=== PATIENT | male | born 1995 | race Caucasian/White ===

== ENCOUNTER 2019-08-10 21:38 | Emergency (ER) | payer OTHER ==
[~2019-08-10] VITALS: Ht 188 cm; Wt 145.2 kg
[~2019-08-10 21:38] MED LIST: ALEVE220 MG PO; BENADRYL25 MG PO; CYCLOBENZAPRINE10 MG PO; FIORINAL 50-321 EACH PO; GUAIATUSSIN AC10 ML PO; IBUPROFEN800 MG PO; NYQUIL D COLD295 ML PO; PENICILLIN V P500 MG PO; POLYSPORIN OI28.3 GM TOP; ROBITUSSIN COL1 EACH PO; ZITHROMAX250 MG PO
[2019-08-10] MEDS ORDERED: VENTOLIN HFA18 GM INH (21:58)
[2019-08-10] MEDS ORDERED: PREDNISONE20 MG PO (22:26)
== END 2019-08-10 22:34 | disposition home or self-care (01) ==
LOC: ED 21:38
DX: J45.901 Unspecified asthma with (acute) exacerbation (principal); J20.9 Acute bronchitis, unspecified; Z79.899 Other long term (current) drug therapy
CPT/HCPCS: 99284; J7512

== ENCOUNTER 2019-08-12 16:03 | Emergency (ER) | payer OTHER ==
[~2019-08-12] VITALS: Ht 188 cm; Wt 145.2 kg
[~2019-08-12 16:03] MED LIST changes: +PREDNISONE20 MG PO; +VENTOLIN HFA18 GM INH
--- OUTSIDE RECORDS SUMMARY | 2019-08-12 16:06 | XMS ---
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 E.Bharti VISIT COUNT (12 MO.) 1 [facility] [address] TOTAL 3 NOTE: Visits indicate total known visits. ED/UCC VISIT TRACKING (12 MO.) 08/12/2019 16:03 [facility]erta TYPE: Emergency COMPLAINT: - COUGH, CONGESTION 08/10/2019 21:39 [facility] [place] TYPE: Emergency COMPLAINT: - UPPER RESPITORY ISSUE [facility]12/2018 14:37 [facility] DIAGNOSES: - Cutaneous abscess, unspecified - Abscess - rash INPATIENT VISIT TRACKING (12 MO.) No inpatient visits to display in this time frame [email or web address]
== END 2019-08-12 16:22 | disposition home or self-care (01) ==
LOC: ED 16:03
DX: R05 Cough (principal); F17.290 Nicotine dependence, other tobacco product, uncomplicated; R09.81 Nasal congestion

== ENCOUNTER 2019-11-01 17:22 | Emergency (ER) | payer OTHER ==
[~2019-11-01] VITALS: Ht 188 cm; Wt 154.2 kg
--- OUTSIDE RECORDS SUMMARY | ~2019-11-01 | XMS | Encounter Summary ---
Demographics + + + | Address | [address] | | | [place] [address] | + + + | Home Phone | | + + + | Preferred Language | Unknown | + + + | Marital Status | Unknown | + + + | Zoroastrian Affiliation | Unknown | + + + | Race | Unknown | + + + | Ethnic Group | Unknown | + + + Author + + + | Author | [facility] | | | and [place] | + + + | Organization | [facility] | | | and [place] | + + + | Address | Unknown | + + + | Phone | Unavailable | + + + Support + + +---------+ + | Name | Relationship | Address | Phone | + + +---------+ + | Galo Walters | ECON | Unknown | + | + + +---------+ + | Georgia Soto | ECON | Unknown | | + + +---------+ + Care Team Providers + +------+ + | Care Supervisor Sunglasses Name | Role | Phone | + +------+ + | No, Physician | PCP | Unavailable | + +------+ + Reason for Visit + + + | Reason | Comments | + + + | Symptom Management | COVID | + + + Encounter Details +--------+ + + + + | Date | Type | Department | Care Team | Description | +--------+ + + + + | 08/16/ | Telephone | [facility] | Drew Arroyo | Symptom Management | | 2020 | | CARE [address] | MD Marleen [address] | (COVID) | | | | [place] | [place] | | | | | [phone] | [address] | | | | | [phone] | | | +--------+ + + + + Social [...] on file | | + + + + + + + | Job Start Date | Occupation | Industry | + + + + | Not on file | Not on file | Not on file | + + + + + + + + | Travel History | Travel Start | Travel End | + + + + + + | No recent travel history available. | + + documented as of this encounter Plan of Treatment Not on filedocumented as of this encounter Visit Diagnoses Not on filedocumented in this encounter"
--- OUTSIDE RECORDS SUMMARY | ~2019-11-01 | XMS | Encounter Summary ---
Demographics + + + | Address | [address] | | | [place] [address] | + + + | Home Phone | | + + + | Preferred Language | Unknown | + + + | Marital Status | Unknown | + + + | Alevism Affiliation | Unknown | + + + | Race | Unknown | + + + | Ethnic Group | Unknown | + + + Author + + + | Author | [facility] | | | and [place] | + + + | Organization | [facility] | | | and [place] [...] Team Providers + +------+ + | Care Fishing Tackle Repairer Name | Role | Phone | + +------+ + | No, Physician | PCP | Unavailable | + +------+ + Reason for Visit + + + | Reason | Comments | + + + | New Patient | | + + + | Back Pain | | + + + Evaluate & Treat (Routine) [...] | pain with | [address] | [place], [place] | | | | | right-sided | [place], [place] | [address] Phone: | | | | | sciatica | [address] | [phone] | | | | | | Phone: | Fax: | | | | | | [phone] | [phone] | | | | | | Fax: | | | | | | | [phone] | | +--------+ + + + + + Encounter Details +--------+---------+ + + + | Date | Type | Department | Care Team | Description | +--------+---------+ + + + | 12/14/ | Office | [facility] [place] | Maira Workman | Spondylolisthesis of | | 2017 | Visit | NEUROSURGERY [address] | [place] [address] | lumbar region | | | | [address] | [address] [address] | (Primary Dx); Lumbar | | | | [place], [place] | [address] | radiculopathy; | | | | [address] | [id number] | Lumbar disc | | | | [phone] | | herniation | +--------+---------+ + + + Social History [...] + + + | Blood Pressure | 120/79 | 12/14/2017 2:15 PM | | | | | PDT | | + + + + + | Pulse | 81 | 12/14/2017 2:15 PM | | | | | PDT | | + + + + + | Temperature | - | - | | + + + + + | Respiratory Rate | 18 | 12/14/2017 2:15 PM | | | | | PDT | | + + + + + | Oxygen Saturation | - | - | | + + + + + | Inhaled Oxygen | - | - | | | Concentration | | | | + + + + + | Weight | 148.5 kg (327 lb 5 | 12/14/2017 2:15 PM | | | | oz) | PDT | | + + + + + | Height | 185.4 cm (6' 1") | 12/14/2017 2:15 PM | | | | | PDT | | + + + + + | Body Mass Index | 43.18 | 12/14/2017 2:15 PM | | | | | PDT | | + + + + + documented in this encounter Patient Instructions Patient Instructions Maira Workman PA-C - 12/14/2017 2:00 PM PDT1. I recommended decreasing BMI to 35 and smoking cessation to improve health and in hopes of avoiding surge ry 2. Please contact our office if her symptoms progress in you would like to discuss surgery documented in this encounter Progress Notes Maira Workman PA-C - 12/14/2017 2:00 PM PDTFormatting of this note might be diffe rent from the original. Joaquin Workman PA-C [address] [place] [address] PHONE: FAX: NEUROSURGERY HISTORY AND PHYSICAL EXAMINATION CHIEF COMPLAINT: Chief Complaint Patient presents with New Patient Back Pain HISTORY OF PRESENT ILLNESS: The patient is a 22 y.o. male with the complaint of back and b ilateral leg pain, leg numbness and foot numbness symptoms that began 2 months ago after he lifted a box of tools. The tools weighed about 50-60 lbs and he bent over to pick them up. T he patient describes pain near/around his tailbone. If he stands too long the pain will go d own the back of his right leg ending at the posterior knee and bothers him more so than the left. The first couple weeks he was unable to turn over in bed. He is feeling improvment as time goes on and reports a Medrol Dosepak given by the ER significantly reduced his symptoms . The symptoms have been unchanged. He rates the pain as mild and rated a 4/10. The symptom s are daily. He describes the pain as dull and aching. The patient describes leg symptoms that occur on primarily on the right. The leg symptoms account for 50% of his symptoms. The leg symptoms are intermittent, and the symptoms travel from the back to the posterolateral leg. The patient also describes numbness of the legs a nd numbness of the feet. He is not able to walk as far as he use to. After about 30 minutes he has to stop and rest. The patient does not report any change in bowel or bladder function recently. His symptoms improve with changing position, standing, sitting and walking. His symptoms worsen with standing, bending and twisting. He has tried Physical Therapy, Opioids, NSAIDS and Muscle relaxer's. Tried marijuana the fi rst month or so, and that helped with his pain. The patient is currently taking muscle relax er's. These measures are still helping. PAST MEDICAL HISTORY: History reviewed. No pertinent past medical history. PAST SURGICAL HISTORY: History reviewed. No pertinent surgical history. CURRENT MEDICATIONS: Current Outpatient Prescriptions Medication Sig Dispense Refill cetirizine (ZYRTEC) 10 mg tablet Take 10 mg by mouth Daily. cyclobenzaprine (FLEXERIL) 10 mg tablet Take 10 mg by mouth 3 times daily as needed for Muscle spasms. diphenhydrAMINE (BENADRYL) 25 mg tablet Take 50 mg by mouth every 6 hours as needed for Itching. No current facility-administered medications for this visit. ALLERGIES: No Known Allergies SOCIAL HISTORY: The patient reports that he has been smoking E-Cigarettes. He has never used smokeless to bacco. He reports that he does not drink alcohol or use drugs. FAMILY HISTORY: History reviewed. No pertinent family history. REVIEW OF SYSTEMS: GENERALLY: No fever, no night sweats, no anemia, no fatigue, no recent profound weight ch anges. EYES: No eye problems, no use of corrective lenses, no eye injury, no double vision, no bl indness. EARS, NOSE, AND THROAT: No changes in taste or smell, no hearing difficulty, no ringing in the ears, no ear drainage, no dizziness, no voice changes, no difficulty swallowing, no sig nificant snoring, no sleep apnea, no sinus problems, no major dental work. NEUROLOGICALLY: Please see the review of systems discussed above in the history of present illness. In addition, the patient has lower back pain, some pins and needles feeling in hi s legs and feet. Will have pain radiate down the back of his legs. PSYCHIATRIC: No depression, no sleep disorders, no anxiety, no bipolar disorder, no psycho tic episodes. CARDIOVASCULAR: No heart attacks, no heart murmur, no heart fluttering, no chest pain, no ankle swelling. LUNG DISEASE: No shortness of breath, no cough, no tuberculosis, no bloody cough, no asth ma, no emphysema/COPD. GASTROINTESTINAL: No bowel disease, no nausea or vomiting, no rectal bleeding, no constipa tion, no stool incontinence, no liver disease, no gallbladder disease, no abdominal pain, no ulcers. KIDNEY DISEASE: No urinary frequency, no painful or difficult urination, no incontinence, no impotence. ENDOCRINE: No diabetes, no thyroid disease, no osteopenia or osteoporosis, no breast drain age. SKIN: No breast lumps, no skin changes, no rashes, no itches. HEMATOLOGIC/LYMPHATIC: No enlarged lymph nodes, no easy or unusual bleeding, no personal h istory of cancer. RHEUMATOLOGIC: No joint arthritis, no rheumatoid arthritis. PHYSICAL EXAMINATION: Blood pressure 120/79, pulse 81, resp. rate 18, height 1.854 m (6' 1"), weight (!) 148.5 kg (327 lb 5 oz). Body mass index is 43.18 kg/m. GENERAL: Campbell Li is in no acute distress with unlabored respirations. The pa tient does not appear uncomfortable throughout the exam today. HEENT: Head: Normocephalic/atraumatic with no areas of recent trauma. Eyes: Normal sclerae without icterus. Ears: No drainage or tenderness. Nasopharynx: Clear without drainage. Oropharynx: Clear without erythema. NECK (ANTERIOR): Supple and without palpable masses. CHEST: Clear to ausculation without crackles or wheeze. HEART: Regular rate and rhythm without murmurs. ABDOMEN: Soft, non-tender, non-distended, and without palpable masses. The patient is obese . SPINE: There is no tenderness of there cervical or thoracic spine. The lumbar spine shows there is tenderness in the midline of the L4, L5, S1 levels. To pal pation, there is no significant myofascial tenderness. There is no significant pain to provacative testing of the SI joint. There is no major deformity noted. EXTREMITIES: No cyanosis, clubbing, or edema. Distal pulses are palpable. NEUROLOGICAL EXAM: MENTAL STATUS: The patient is awake, alert, and oriented. He follows simple and complex commands. His speech is fluent, he comprehends speech well, and he repeats well. He has no apparent deficits with short or supervisor intermediates memory. CRANIAL NERVES: II: Acuity is intact. Hernandez are full to confrontation. III, IV, : The pupils are reactive. Extraocular movements are intact. No ptosis is note d. V: Facial sensation is intact and symmetric. VII: Facial movements are symmetric. VIII: Hearing is intact bilaterally. IX, X: The uvula and palate move appropriately. XI: Shrug is equal bilaterally. XII: Tongue protrusion is midline. MOTOR EXAM: (5 IS NORMAL) * Indicates pain limited MUSCLE/ MOVEMENT: RIGHT LEFT Hip Flexion 5 5 Hip Extension 5 5 Knee Flexion 5 5 Knee Extension 5 5 Dorsiflexion 5 5 Extensor Hallicus Longus 5 5 Plantarflexion 5 5 SENSORY EXAM: Sensory exam shows no diminished sensation to light touch or pain throughout the upper and lower extremities. REFLEXES: (2 OR 2+ IS NORMAL) REFLEX: RIGHT LEFT PATELLAR 2 2 ACHILLES 2 2 WARD'S ABSENT ABSENT PLANTAR DOWNGOING DOWNGOING GAIT: Gait is steady. patient is able to demonstrate tiptoe and heel walk PERIPHERAL NERVE/MISC: Straight leg raise is negative bilaterally. Avi's test of the hips is negative bilaterally. TEST AND RADIOGRAPHIC REVIEW: The patient's imaging was reviewed in detail with the patient today during the visit. The MRI from 2018 shows L4-5 severe central disc protrusion causing severe central spinal stenos is and complete effacement of the CSF collar and mild mass effect at this level. This is ca using mild bilateral neural foraminal narrowing. Lumbar x-rays from 12/14/17 shows spondylolisthesis at L4-5 on flexion extension views. Sp ondylolisthesis is unstable and lumbar extension and normalizes in lumbar flexion. ASSESSMENT: NEUROSURGICAL DIAGNOSES: Encounter Diagnoses Name Primary? Spondylolisthesis of lumbar region Yes Lumbar radiculopathy Lumbar disc herniation GENERAL DIAGNOSES: History reviewed. No pertinent past medical history. PLAN: Campbell Li presented today, and it was a pleasure seeing this patient and assess ing his neurologic problems. The patient has L4-5 spondylolisthesis with very large central disc protrusion causing jesse re canal stenosis. The patient has stable symptoms. I had a lengthy discussion with the patient about his options for care including surgical a nd non-surgical options. In discussing the surgical options, we discussed in detail the patient's options for a mini anuja invasive discectomy at L4-5 versus fusion at L4-5 due to spondylolisthesis. We answer ed a number of questions about surgery and the different available techniques. The patient understands that in most instances the recovery from surgery can be lengthy and sometimes difficult. The patient would like to continue with conservative care including 100 pound weight loss a nd smoking cessation which would optimize conservative outcome or surgical options. The patient would like to continue conservative care and return to discuss surgery or addit ional treatment options if the symptoms worsen. Patient is willing to see Dr. Vigil or Dr. Dr king in the event that his symptoms progress and surgery is being considered. ELECTRONICALLY SIGNED BY: Joaquin Workman PA-C, 12/14/2017 15:12 documented in this encounter Plan of Treatment Not on filedocumented as of this encounter Visit Diagnoses + + | Diagnosis | + + | Spondylolisthesis of lumbar region - Primary Acquired spondylolisthesis | + + | Lumbar radiculopathy Thoracic or lumbosacral neuritis or radiculitis, unspecified | + + | Lumbar disc herniation Displacement of lumbar intervertebral disc without myelopathy | + + documented in this encounter
--- OUTSIDE RECORDS SUMMARY | ~2019-11-01 | XMS | Encounter Summary ---
Demographics + + + | Address | [address] | | | [place] [address] | + + + | Home Phone | | + + + | Preferred Language | Unknown | + + + | Marital Status | Unknown | + + + | Congregation Affiliation | Unknown | + + + | Race | Unknown | + + + | Ethnic Group | Unknown | + + + Author + + + | Author | [facility] | | | and [place] | + + + | Organization | [facility] | | | and [place] | [...] Team Providers + +------+ + | Care Surgical Garment Fitter Name | Role | Phone | + +------+ + | No, Physician | PCP | Unavailable | + +------+ + Reason for Visit +---------+ + | Reason | Comments | +---------+ + | Abscess | | +---------+ + Encounter Details +--------+ + + + + | Date | Type | Department | Care Team | Description | +--------+ + + + + | // | Emergency | [facility] | Paul Art MD | Abscess (Primary Dx) | | 2019 | | [facility] | [address] | | | | | CENTER [address] | [place] | | | | | [place], [place] | [address] | | | | | [address] | | | | | | [phone] | | | +--------+ + + + [...] + + + | Blood Pressure | 143/85 | 08/12/2018 4:45 PM | | | | | PST | | + + + + + | Pulse | 71 | 08/12/2018 4:56 PM | | | | | PST | | + + + + + | Temperature | 37.4 C (99.3 F) | 08/12/2018 2:59 PM | | | | | PST | | + + + + + | Respiratory Rate | 16 | 08/12/2018 2:59 PM | | | | | PST | | + + + + + | Oxygen Saturation | 97% | 08/12/2018 4:56 PM | | | | | PST | | + + + + + | Inhaled Oxygen | - | - | | | Concentration | | | | + + + + + | Weight | 147.4 kg (325 lb) | 08/12/2018 2:59 PM | | | | | PST | | + + + + + | Height | 185.4 cm (6' 1") | 08/12/2018 2:59 PM | | | | | PST | | + + + + + | Body Mass Index | 42.88 | 08/12/2018 2:59 PM | | | | | PST | | + + + + + documented in this encounter Discharge Instructions Instructions Paul Art MD - 08/12/2018Please fill prescription if you start having any redness around the incision. Return for any fevers, chills, nausea and vomiting. AttachmentsThe following attachments cannot be sent through Care Everywhere.Abscess, Incisi on And Drainage (Grenadian)documented in this encounter Medications at Time of [...] +---------+ + + | cyclobenzaprine | Take 10 mg by mouth | | 0 | | | | (FLEXERIL) 10 mg | 3 times daily as | | | | | | tablet | needed for Muscle | | | | | | | spasms. | | | | | + + + +---------+ + + | | Take 1 tablet by | 14 | 0 | 08/13/19 | | | sulfamethoxazole-tri | mouth 2 times daily | tablet | | 19 | 9 | | methoprim (BACTRIM | for 7 days. | | | | | | DS) 800-160 mg per | | | | | | | tablet [...] | + +--------+ + + + | INCISION AND | Routin | 08/15/2018 | | Results for this | | DRAINAGE | e | 3:26 PM | | procedure are in the | | | | PST | | results section. | + +--------+ + + + documented in this encounter Results INCISION AND DRAINAGE (08/15/2018 3:26 PM PST) + + + | Narrative | Performed At | + + + | Paul Art MD 08/15/2018 15:27 Incision/Drainage Date/Time: | | | 08/15/2018 15:26 Performed by: PAUL ART Authorized by: KAELYN | | | PAUL Consent: Consent obtained: Verbal Consent given | | | by: Patient Risks discussed: Bleeding, incomplete drainage, | | | pain, infection and damage to other organs Alternatives | | | discussed: No treatment Location: Type: Abscess | | | Location: Trunk Trunk location: Abdomen Anesthesia: | | | Anesthesia method: Local infiltration Local anesthetic: | | | Lidocaine 1% WITH epi Procedure type: Complexity: Simple | | | Procedure details: Needle aspiration: no Incision types: | | | Single straight Incision depth: Subcutaneous Scalpel | | | blade: 11 Wound management: Probed and deloculated and | | | irrigated with saline Drainage: Serosanguinous Drainage | | | amount: Scant Wound treatment: Wound left open Packing | | | materials: None Post-procedure details: Patient tolerance of | | | procedure: Tolerated well, no immediate complications | | + + + documented in this encounter Visit Diagnoses + + | Diagnosis | + + | Abscess - Primary Cellulitis and abscess of unspecified site | + + documented in this encounter Administered Medications + +--------+ + +------+------+ | Medication Order | MAR | Action | Dose | Rate | Site | | | Action | Date | | | | + +--------+ + +------+------+ | bacitracin topical ointment | Given | 08/13/19 | 1 | | | | Topical, ONCE, 08/12/18 at | | 19 4:53 | Applicat | | | | 1655, For 1 dose | | PM PST | ion | | | + +--------+ + +------+------+ +---+---+ | | | +---+---+ documented in this encounter
--- OUTSIDE RECORDS SUMMARY | ~2019-11-01 | XMS | Encounter Summary ---
Demographics + + + | Address | [address] | | | [place] [address] | + + + | Home Phone | | + + + | Preferred Language | Unknown | + + + | Marital Status | Unknown | + + + | Congregational Affiliation | Unknown | + + + | Race | Unknown | + + + | Ethnic Group | Unknown | + + + Author + + + | Author | [facility] | | | and [place] | + + + | Organization | [facility] | | | and [place] | [...] Team Providers + +------+ + | Care Corporate Learning Consultant Name | Role | Phone | + [...] | improving (Primary | | | | [phone] | [phone] | Dx); Mild | | | | [phone] | | intermittent asthma | | | [...] fluids and get plenty of rest. Use hdrg-vat-jmeipsj Tylenol or Advil as needed for fever, [...] d/or Cepastat throat spray as needed. Take mupr-qwe-vjgoflc Mucinex or equivalent product as needed for [...] when you feel good. Date Last Reviewed: 05/12/201619992248-5049 [employer] [address] [place] [address], [place] [address]. All righ ts reserved. This information is [...] 6 day s ago. Seen at in [place] 6 days ago and given prednisone with [...] anterior pleuritic chest burning/pain. [facility] and has hx of asthma on albuterol inhaler. Never hospitalized for the same. Has been taking prednisone, Zpak and albuterol with improvement in symptoms. No travel history outside the area in the last month. No known exposure to others ill after tr bowen to [facility] areas of concern. He presents with his [...] view chest x-ray and the report from [facility] in [place] performed 6 days ago. The urgent care [...] fluids and get plenty of rest. Use flhw-rpa-sasjobs Tylenol or Advil as needed for fever, [...] d/or Cepastat throat spray as needed. Take yetw-cfp-fjfzzkk Mucinex or equivalent product as needed for thick mucous. Use Robitussin-DM as needed for cough. Return or follow-up with your primary doctor if not better in 1 week, sooner if experiencin g difficulty swallowing liquids, progressive productive cough, associated chest pain, shortn ess of breath, progressive wheezing, fever, vomiting or progessive sinus pressure/headache. Drew Aroryo MD documented in th is encounter Plan of Treatment Not on filedocumented as of this encounter Visit Diagnoses + + | Diagnosis | + + | Atypical pneumonia, history of, improving - Primary Pneumonia, organism unspecified | + + | Mild intermittent asthma without complication Unspecified asthma | + + documented in this encounter
--- OUTSIDE RECORDS SUMMARY | ~2019-11-01 | XMS | Encounter Summary ---
Demographics + + + | Address | [address] | | | [place] [address] | + + + | Home Phone | | + + + | Preferred Language | Unknown | + + + | Marital Status | Unknown | + + + | Gnosticism Affiliation | Unknown | + + + | Race | Unknown | + + + | Ethnic Group | Unknown | + + + Author + + + | Author | [facility] | | | and [place] | + + + | Organization | [facility] | | | and [place] [...] Team Providers + +------+ + | Care Wire Preparation Worker Name | Role | Phone | + [...] | | | | CENTER [address] | [place] | | | | | [place], [place] | [address] | | | | | [address] | | | | | | [phone] | | | +--------+ + + + [...] through Care Everywhere.Abscess, Incisi on And Drainage (Lithuanian)documented in this encounter Medications at Time of [...]
--- OUTSIDE RECORDS SUMMARY | ~2019-11-01 | XMS | Encounter Summary ---
Demographics + + + | Address | [address] | | | [place] [address] | + + + | Home Phone | | + + + | Preferred Language | Unknown | + + + | Marital Status | Unknown | + + + | Mandaeism Affiliation | Unknown | + + + | Race | Unknown | + + + | Ethnic Group | Unknown | + + + Author + + + | Author | [facility] | | | and [place] | + + + | Organization | [facility] | | | and [...] Team Providers + +------+ + | Care Commercial Producer Name | Role | Phone | + [...] | +--------+ + + + + | 10/09/ | Emergency | [facility] | Juan Francisco Porras | Lumbar strain, | | 2018 | | [facility] | Kwadwo Jones MD | initial encounter | | | | CENTER [address] | [address] | (Primary Dx) | | | | [place], [place] | [place], [place] | | | | | [address] | [address] | | | | | [phone] | | | +--------+ + + + [...] + + + | Blood Pressure | 125/70 | 10/09/2017 3:11 PM | | | | | PDT | | + + + + + | Pulse | 87 | 10/09/2017 3:11 PM | | | | | PDT | | + + + + + | Temperature | 36.9 C (98.5 F) | 10/09/2017 1:09 PM | | | | | PDT | | + + + + + | Respiratory Rate | 18 | 10/09/2017 3:11 PM | | | | | PDT | | + + + + + | Oxygen Saturation | 96% | 10/09/2017 3:11 PM | | | | | PDT | | + + + + + | Inhaled Oxygen | - | - | | | Concentration | | | | + + + + + | Weight | 129.3 kg (285 lb) | 10/09/2017 1:09 PM | | | | | PDT | | + + + + + | Height | 185.4 cm (6' 1") | 10/09/2017 1:09 PM | | | | | PDT | | + + + + + | Body Mass Index | 37.6 | 10/09/2017 1:09 PM | | | | | PDT | | + + + + + documented in this encounter Discharge Instructions Instructions Juan Francisco Porras MD - 10/09/2017Do stretching and icing to your lo wer back. Continue walking. Please follow-up with your primary care physician. Please fol low-up with the primary care physician for further reassessment and possible referral to phy sical therapy. AttachmentsThe following attachments cannot be sent through Care Everywhere.Lumbosacral Str ain, Understanding (Sami)documented in this encounter Medications at Time of [...] cyclobenzaprine | Take 1 tablet by | 21 | 0 | 10/10/19 | | | (FLEXERIL) 10 mg | mouth 3 times daily | tablet | | 18 | 8 | | tablet | as needed for Muscle | | | | [...] tablet by | 30 | 0 | 10/10/19 | | | (ADVIL,MOTRIN) 800 | mouth [...] + | Diagnosis | + + | Lumbar strain, initial encounter - Primary | + + documented in this encounter Administered Medications + +--------+ +-------+------+------+ | Medication Order | MAR | Action | Dose | Rate | Site | | | Action | Date | | | | + +--------+ +-------+------+------+ | cyclobenzaprine (FLEXERIL) | Given | 10/10/19 | 10 mg | | | | tablet 10 mg 10 mg, Oral, ONCE, | | 18 2:44 | | | | | 10/09/17 at 1435, For 1 dose | | PM PDT | | | | + +--------+ +-------+------+------+ +---+---+ | | | +---+---+ + +-------+ +-------+---+ + | ketorolac (TORADOL) injection | Given | 10/10/19 | 60 mg | | Ventrogl | | 60 mg 60 mg, Intramuscular, | | 18 2:44 | | | uteal-Ri | | ONCE, Mon10/09/17 at 1435, For 1 | | PM PDT | | | ght | | dose | | | | | | + +-------+ +-------+---+ + +---+---+ | | | +---+---+ + +-------+ +------+---+ + | morphine injection 8 mg 8 mg, | Given | 10/10/19 | 8 mg | | Ventrogl | | Intramuscular, ONCE, Mon10/09/17 | | 18 2:45 | | | uteal-Le | | at 1435, For 1 dose | | PM PDT | | | ft | + +-------+ +------+---+ + +---+---+ | | | +---+---+ documented in this encounter
--- OUTSIDE RECORDS SUMMARY | ~2019-11-01 | XMS | Encounter Summary ---
Demographics + + + | Address | [address] | | | [place] [address] | + + + | Home Phone | | + + + | Preferred Language | Unknown | + + + | Marital Status | Unknown | + + + | Jain Affiliation | Unknown | + + + | Race | Unknown | + + + | Ethnic Group | Unknown | + + + Author + + + | Author | [facility] | | | and [place] | + + + | Organization | [facility] | | | and [place] [...] Team Providers + +------+ + | Care Representative Phlebotomy Services Name | Role | Phone | + +------+ + | No Physician | PCP | Unavailable | + +------+ + Encounter Details +--------+ + + + + | Date | Type | Department | Care Team | Description | +--------+ + + + + | 11/02/ | Orders Only | [facility] [place] | Fletcher Ellis, | Back pain, | | 2018 | | NEUROSURGERY [address] | DO [address] | unspecified back | | | | [address] | [address] [place], [place] | location, | | | | [place], [place] | [address] | unspecified back | | | | [address] | | pain laterality, | | | | [phone] | | unspecified | | | | | | chronicity (Primary | | | | | | Dx) | +--------+ + + + + Social [...] Not on filedocumented as of this encounter Results XR Lumbar Spine 4 [...] Procedure Note | + + | Steffen, Faizan Results In - 12/14/2017 2:25 PM PDT [...] back pain laterality, unspecified | | chronicity - Primary | + + documented in this encounter"
--- OUTSIDE RECORDS SUMMARY | ~2019-11-01 | XMS | Encounter Summary ---
Demographics + + + | Address | [address] | | | [place] [address] | + + + | Home Phone | | + + + | Preferred Language | Unknown | + + + | Marital Status | Unknown | + + + | Cheondoism Affiliation | Unknown | + + + | Race | Unknown | + + + | Ethnic Group | Unknown | + + + Author + + + | Author | [facility] | | | and [place] | + + + | Organization | [facility] | | | and [place] [...] Team Providers + +------+ + | Care Legal Support Assistant Name | Role | Phone | + +------+ + | No, Physician | PCP | Unavailable | + +------+ + Reason for Visit +--------+ + | Reason | Comments | +--------+ + | Fall | | +--------+ + Encounter Details +--------+ + + + + | Date | Type | Department | Care Team | Description | +--------+ + + + + | 02/01/ | Emergency | [facility] | Zev Haji | Contusion of right | | 2017 | | [facility] | MD Akin [address] | leg, initial | | | | CENTER [address] | [address] [place] | encounter (Primary | | | | [place], [place] | [place] [address] | Dx); Other sprain of | | | | [address] | [phone] | right thumb, | | | | [phone] | | initial encounter | +--------+ + + + + Social History + +-------+ +--------+------+ | Tobacco Use | Types | Packs/Day | Years | Date | | | | | Used | | + +-------+ +--------+------+ | Passive Smoke | | | | | | Exposure - Never | | | | | | Smoker | | | | | + +-------+ +--------+------+ + + +---------+ + | Alcohol Use [...] + + + | Blood Pressure | 138/78 | 02/01/2017 5:11 PM | | | | | PDT | | + + + + + | Pulse | 93 | 02/01/2017 5:11 PM | | | | | PDT | | + + + + + | Temperature | - | - | | + + + + + | Respiratory Rate | 16 | 02/01/2017 5:11 PM | | | | | PDT | | + + + + + | Oxygen Saturation | 97% | 02/01/2017 5:11 PM | | | | | PDT | | + + + + + | Inhaled Oxygen | - | - | | | Concentration | | | | + + + + + | Weight | 133.8 kg (295 lb) | 02/01/2017 5:11 PM | | | | | PDT | | + + + + + | Height | 185.4 cm (6' 1") | 02/01/2017 5:11 PM | | | | | PDT | | + + + + + | Body Mass Index | 38.92 | 02/01/2017 5:11 PM | | | | | PDT | | + + + + + documented in this encounter Discharge Instructions Instructions Zev Haji MD - 02/01/2017Take ibuprofen 600 mg every 6-8 hours if needed for pain You may also take Tylenol thousand milligrams every 6 hours in addition to ibuprofen if nee ded for pain not relieved by ibuprofen Expect a couple of weeks to heal documented in this encounter Medications at Time of [...] + +--------+ + + + | XR FINGER RIGHT 2 + | Routin | 02/01/2017 | | Results for this | | VW | e | 6:00 PM | | procedure are in the | | | | PDT | | results section. | + +--------+ + + + | XR TIBIA FIBULA | STAT | 02/01/2017 | | Results for this | | RIGHT 2 VW | | 5:57 PM | | procedure are in the | | | | PDT | | results section. | + +--------+ + + + documented in this encounter Results XR Finger Right 2 + Vw (02/01/2017 6:00 PM PDT) + + | Specimen | + + | | + + + + + | Narrative | Performed At | + + + | EXAM:XR FINGER RIGHT 2 + VW CLINICAL HISTORY: Pain in right | [facility] | | thumb COMPARISON: None. FINDINGS: 3 views of the right thumb. | | | Normal mineralization. No acute fracture. No current | | | dislocation. No bone erosion or destruction. The soft tissues are | | | unremarkable. There are no radiopaque foreign bodies. | | | IMPRESSION - No acute fracture or current dislocation. | | | Dictated and Signed by: Maxim Israel MD Electronically signed: | | | 02/01/2017 6:02 PM | | + + + + + | Procedure Note | + + | Steffen, Faizan Results In - 02/01/2017 6:05 PM PDT EXAM:XR FINGER RIGHT 2 + VW | | | | CLINICAL HISTORY: Pain in right thumb | | | | COMPARISON: None. | | | | FINDINGS: 3 views of the right thumb. | | | | Normal mineralization. No acute fracture. No current dislocation. No bone | | erosion or destruction. The soft tissues are unremarkable. There are no | | radiopaque foreign bodies. | | | | IMPRESSION - | | | | No acute fracture or current dislocation. | | | | Dictated and Signed by: Maxim Israel MD | | Electronically signed: 02/01/2017 6:02 PM | + + + +---------+ + + | Performing | Address | City/State/Zipcode | Phone Number | | Organization | | | | + +---------+ + + | [facility] | | | | + +---------+ + + XR Tibia Fibula Right 2 Vw (02/01/2017 5:57 PM PDT) + + | Specimen | + + | | + + + + + | Narrative | Performed At | + + + | EXAM:XR TIBIA FIBULA RIGHT 2 VW CLINICAL HISTORY: FALL | [facility] | | COMPARISON: None. FINDINGS: 2 views of the right tibia and fibula. | | | One frontal view of the right knee. Normal mineralization. | | | No acute fracture. No current dislocation. No bone erosion or | | | destruction. The soft tissues are unremarkable. There are no | | | radiopaque foreign bodies. IMPRESSION - No acute osseous | | | abnormality. Dictated and Signed by: Maxim Israel MD | | | Electronically signed: 02/01/2017 6:00 PM | | + + + + + | Procedure Note | + + | Steffen, Rad Results In - 02/01/2017 6:03 PM PDT EXAM:XR TIBIA FIBULA RIGHT 2 VW | | | | CLINICAL HISTORY: FALL | | | | COMPARISON: None. | | | | FINDINGS: 2 views of the right tibia and fibula. One frontal view of the right | | knee. | | | | Normal mineralization. No acute fracture. No current dislocation. No bone | | erosion or destruction. The soft tissues are unremarkable. There are no | | radiopaque foreign bodies. | | | | IMPRESSION - | | | | No acute osseous abnormality. | | | | Dictated and Signed by: Maxim Israel MD | | Electronically signed: 02/01/2017 6:00 PM | + + + +---------+ + + | Performing | Address | City/State/Zipcode | Phone Number | | Organization | | | | + +---------+ + + | [facility] | | | | + +---------+ + + documented in this encounter Visit Diagnoses + + | Diagnosis | + + | Contusion of right leg, initial encounter - Primary | + + | Other sprain of right thumb, initial encounter | + + documented in this encounter
--- OUTSIDE RECORDS SUMMARY | ~2019-11-01 | XMS | Clinical Summary ---
Demographics + + + | Address | [address] | | | [place] [address] | + + + | Home Phone | | + + + | Preferred Language | Unknown | + + + | Marital Status | Unknown | + + + | Samaritan Affiliation | Unknown | + + + | Race | Unknown | + + + | Ethnic Group | Unknown | + + + Author + + + | Author | [facility] | | | and [place] | + + + | Organization | [facility] | | | and [place] [...] Team Providers + +------+ + | Care Loss Prevention Officer Name | Role | Phone | + [...] +---------+------+------+-------+ Active Problems No known active problems Encounters +--------+ + + + + | Date | Type | Specialty | Care Team | Description | +--------+ + + + + | 08/16/ | Telephone | Immediate Care | Drew Arroyo | Symptom Management | | 2020 | | | MD Marleen | (COVID) | +--------+ + + + + | 08/15/ | Office | Immediate Care | Drew Arroyo | Atypical pneumonia, | | 2019 | Visit | | MD Marleen | history of, | | | | | | improving (Primary | | | | | | Dx); Mild | | | | | | intermittent asthma | | | | | | without complication | +--------+ + + + + from Last 3 Months Social History + + + +--------+------+ | [...] recent travel history available. | + + Last Filed Vital Signs + [...] Health Maintenance | Due Date | Last Done | Comments | + + + + + | Vaccine: | | | | | Pneumococcal 19-64 | 3 | | | | (1 of 1 - PPSV23) | | | | + + + + + | Vaccine: Influenza | | 04/28/2011 | | | (Season Ended) | 0 | | | + + + + + | Vaccine: | | 02/14/2017 | | | Dtap/Tdap/Td (2 - | 7 | | | | Td) | | | [...] | [employer] | [facility] | [id number] | 08/16/19 | [phone] | | Medica [...] + +--------+ +--------+ + + | Campbell iL | Person | Self | [birth year] | [address] | | [place] | [place] | | 1994 | [phone] | [address] | | | [place] | | | [address] (Home) | [place] [address] | + +--------+ +--------+ + + Advance Directives + + + + + | Type | Date Recorded | Patient | Explanation | | | | Cat And Dog Bather | | + + + + + | Power of | | | | | Map Colorer | | | | + + + + + | Advance | 02/01/2017 6:05 | | | | Directive | PM | | | + + + + +
--- OUTSIDE RECORDS SUMMARY | ~2019-11-01 | XMS | Clinical Summary ---
Demographics + + + | Address | [address] | | | [place] [address] | + + + | Home Phone | | + + + | Preferred Language | Unknown | + + + | Marital Status | Unknown | + + + | Buddhism Affiliation | Unknown | + + + | Race | Unknown | + + + | Ethnic Group | Unknown | + + + Author + + + | Author | [facility] | | | and [place] | + + + | Organization | [facility] | | | and [...] Team Providers + +------+ + | Care Belt Conveyor Drier Name | Role | Phone | + [...] | [employer] | [facility] | [id number] | 08/16/19 | [phone] | | Medica [...] | | 9 (Home) | [place] [address] | + +--------+ +--------+ + + Advance Directives + + + + + | Type | Date Recorded | Patient | Explanation | | | | Hitch Technician | | + + + + + | Power of | | | | | Safety Physician | | | | + + + + + | Advance | 02/01/2017 6:05 | | | | Directive | PM | | | + + + + +
--- OUTSIDE RECORDS SUMMARY | ~2019-11-01 | XMS | Encounter Summary ---
Demographics + + + | Address | [address] | | | [place] [address] | + + + | Home Phone | | + + + | Preferred Language | Unknown | + + + | Marital Status | Unknown | + + + | Restorationism Affiliation | Unknown | + + + | Race | Unknown | + + + | Ethnic Group | Unknown | + + + Author + + + | Author | [facility] | | | and [place] | + + + | Organization | [facility] | | | and [place] [...] Team Providers + +------+ + | Care Health Practice Manager Name | Role | Phone | [...] | pain with | [address] [place] | [place], [place] | | | | | right-sided | [place], [place] | [address] Phone: | | | | | sciatica | [address] | [phone] | | | | | | Phone: | Fax: | | | | | | [phone] | [phone] | | | | | | Fax: | | | | | | | [phone] | | +--------+ + + + + [...] | right-sided | MD Juan Francisco | [place] | | | | n | low back | [address] | [place], | | | | | pain with | [place] | [place] [address] | | | | | right-sided | [place], [place] | Phone: | | | | | sciatica | [address] | [phone] | | | | | | Phone: | Fax: | | | | | | [phone] | [phone] | | | | | | Fax: | | | | | | | [phone] | | +--------+ + + + + [...] | | | | CENTER [address] | [address] [place] | right-sided sciatica | | | | [place], [place] | [place] [address] | (Primary Dx); | | | | [address] | [phone] | Lumbar disc | | | | [phone] | | herniation | +--------+ + + [...] sent through Care Everywhere.Back Pain, Reli eving (Vietnamese)Back Pain (Low): Self-Care (Vietnamese)documented in this encounter Medications at Time of [...] as of this encounter Plan of Treatment + + [...] + +--------+ + + + | EXTRA ANGENDER TOP | STAT | 10/12/2017 | | [...] not | >60Comment: GLOMERULAR | >=60 | [facility] | | | | FILTRATION | mL/min/1.73m2 | [facility] | | | [place] | RATE,ESTIMATED | | MEDICAL | | | | mL/min/1.89w0Xifb than | | CENTER - | | [...] | 10.0 | 8.3 - 10.5 | [facility] | | | | | mg/dL | [facility] | | | | | | MEDICAL | | | | | | CENTER - | | | | | | LABORATORY | | + + + + + + | Albumin | 4.4 | 3.2 - 5.0 g/dL | [facility] | | | | | | [facility] | | | | | | MEDICAL | | | | | | CENTER - | | | | | | LABORATORY | | + + + + + + | Bilirubin | 0.8Comment: This is an | 0.1 - 1.5 mg/dL | [facility] | | | Total | appended report. These | | ST. [...] | an appended report. | | [facility] | | | | These results have [...] | + + + + + | [facility] | [address] | [place] | [phone] | | [facility] | | [address] | | | - LABORATORY | | | | + + + + + CBC with Differential (10/12/2017 5:40 PM PDT) + + + + + + | Component | Value | Ref Range | Performed | Pathologist | | | | | At | Signature | + + + + + + | WBC | 10.9 | 4.0 - 11.0 K/uL | [facility] | | | | | | [facility] | | | | | | MEDICAL | | | | | | CENTER - | | | | | | LABORATORY | | + + + + + + | RBC | 5.48 | 4.30 - 5.70 | [facility] | | | | | M/uL | [facility] | | | | | | MEDICAL | | | | | | CENTER - | | | | | | LABORATORY | | + + + + + + | Hemoglobin | 15.6 | 13.5 - 18.0 | [facility] | | | | | g/dL | [facility] | | | | | | MEDICAL | | | | | | CENTER - | | | | | | LABORATORY | | + + + + + + | Hematocrit | 46.6 | 40.0 - 51.0 % | [facility] | | | | | | . [facility] | | | | | [...] [address] | [place] | [phone] | | [facility] | | [address] | | | - LABORATORY | | [...] ST. | [address] | [place], [place] | [phone] | | [facility] | | [address] | | | - LABORATORY | | [...] [address] | [place] | [phone] | | [facility] | | [address] | | | - LABORATORY | | [...] | + + + + + | [address] | [address] | [place], [place] | [phone] | | [facility] | | [address] | | | - LABORATORY | | [...] [address] | [place] | [phone] | | [facility] | | [address] | | | - LABORATORY | | [...] + | [facility] | [address] | [place] | [phone] | | [facility] | | [address] | | | - LABORATORY | | [...] | [address] | [place] | [phone] | | [facility] | | [address] | | | - LABORATORY | | [...] [address] | [place] | [phone] | | [facility] | | [address] | | | - LABORATORY | | [...]
--- OUTSIDE RECORDS SUMMARY | ~2019-11-01 | XMS | Encounter Summary ---
Demographics + + + | Address | [address] | | | [place] [address] | + + + | Home Phone | | + + + | Preferred Language | Unknown | + + + | Marital Status | Unknown | + + + | Quaker Affiliation | Unknown | + + + | Race | Unknown | + + + | Ethnic Group | Unknown | + + + Author + + + | Author | [facility] | | | and [place] | + + + | Organization | [facility] | | | and [...] Team Providers + +------+ + | Care Material Cutter Name | Role | Phone | + [...] | improving (Primary | | | | [address] | [address] | Dx); Mild | | | | [phone] | | intermittent asthma | | | [...] fluids and get plenty of rest. Use ofea-sbk-iwuvrqw Tylenol or Advil as needed for fever, [...] d/or Cepastat throat spray as needed. Take dgrs-cdd-tsclzxi Mucinex or equivalent product as needed for [...] when you feel good. Date Last Reviewed: 05/12/201619996695-3204 [employer]. [address] [place] [address], [place] [address]. All righ ts reserved. This information is [...] 6 day s ago. Seen at in [place] 6 days ago and given prednisone with [...] anterior pleuritic chest burning/pain. [facility] and has hx of asthma on albuterol inhaler. Never hospitalized for the same. Has been taking prednisone, Zpak and albuterol with improvement in symptoms. No travel history outside the area in the last month. No known exposure to others ill after tr bowen to [facility] areas of concern. He presents with [...] view chest x-ray and the report from [facility] in [place] performed 6 days ago. The urgent care [...] fluids and get plenty of rest. Use cwjz-see-pypnmbp Tylenol or Advil as needed for fever, [...] d/or Cepastat throat spray as needed. Take ovct-lsj-ypzysbo Mucinex or equivalent product as needed for [...]
--- OUTSIDE RECORDS SUMMARY | ~2019-11-01 | XMS | Encounter Summary ---
Demographics + + + | Address | [address] | | | [place] [address] | + + + | Home Phone | | + + + | Preferred Language | Unknown | + + + | Marital Status | Unknown | + + + | Roman Catholic Affiliation | Unknown | + + + | Race | Unknown | + + + | Ethnic Group | Unknown | + + + Author + + + | Author | [facility] | | | and [place] | + + + | Organization | [facility] | | | and [...] Team Providers + +------+ + | Care House Mover Helper Name | Role | Phone | + +------+ + | No Physician | PCP | Unavailable | + +------+ + Encounter Details +--------+ + + + + | Date | Type | Department | Care Team | Description | +--------+ + + + + | 12/14/ | Hospital | [facility] | Fletcher Ellis, | Back pain, | | 2018 | Encounter | MED CTR XRAY [address] | DO [address] | unspecified back | | | | [place] | [address] [place], [place] | location, | | | | [place] [address] | [address] | unspecified back | | | | [phone] | | pain laterality, | | | [...]
--- OUTSIDE RECORDS SUMMARY | ~2019-11-01 | XMS | Encounter Summary ---
Demographics + + + | Address | [address] | | | [place] [address] | + + + | Home Phone | | + + + | Preferred Language | Unknown | + + + | Marital Status | Unknown | + + + | Congregational Affiliation | Unknown | + + + | Race | Unknown | + + + | Ethnic Group | Unknown | + + + Author + + + | Author | [facility] | | | and [place] | + + + | Organization | [facility] | | | and [place] [...] Team Providers + +------+ + | Care Round Corner Cutter Operator Name | Role | Phone | + [...] [address] | [address] [place], [place] | location, | | | | [place], [place] | [address] | unspecified back | | | | [address] | | pain laterality, | | | | [phone] | | unspecified | | | | [...]
--- OUTSIDE RECORDS SUMMARY | ~2019-11-01 | XMS | Encounter Summary ---
Demographics + + + | Address | [address] | | | [place] [address] | + + + | Home Phone | | + + + | Preferred Language | Unknown | + + + | Marital Status | Unknown | + + + | Sikh Affiliation | Unknown | + + + | Race | Unknown | + + + | Ethnic Group | Unknown | + + + Author + + + | Author | [facility] | | | and [place] | + + + | Organization | [facility] | | | and [...] Team Providers + +------+ + | Care Feed Inspection Supervisor Name | Role | Phone | + [...] [place] | | | | | [address] | [address] | | | | | [phone] | | | +--------+ + + + [...]
--- OUTSIDE RECORDS SUMMARY | ~2019-11-01 | XMS | Encounter Summary ---
Demographics + + + | Address | [address] | | | [place] [address] | + + + | Home Phone | | + + + | Preferred Language | Unknown | + + + | Marital Status | Unknown | + + + | Buddhism Affiliation | Unknown | + + + | Race | Unknown | + + + | Ethnic Group | Unknown | + + + Author + + + | Author | [facility] | | | and [place] | + + + | Organization | [facility] | | | and [place] [...] Team Providers + +------+ + | Care Dispensing Optician Apprentice Name | Role | Phone | + +------+ + | No Physician | PCP | Unavailable | + +------+ + Encounter Details +--------+ + + + + | Date | Type | Department | Care Team | Description | +--------+ + + + + | 12/14/ | Hospital | [facility] | Fletcher Ellis, | Back pain, | | 2018 | Encounter | MED CTR XRAY [address] | DO [address] | unspecified back | | | | [place] | [address] [place], [place] | location, | | | | [place] [address] | [address] | unspecified back | | | | [phone] | | pain laterality, | | | [...]
--- OUTSIDE RECORDS SUMMARY | ~2019-11-01 | XMS | Encounter Summary ---
Demographics + + + | Address | [address] | | | [place] [address] | + + + | Home Phone | | + + + | Preferred Language | Unknown | + + + | Marital Status | Unknown | + + + | Pentecostal Affiliation | Unknown | + + + | Race | Unknown | + + + | Ethnic Group | Unknown | + + + Author + + + | Author | [facility] | | | and [place] | + + + | Organization | [facility] | | | and [place] [...] Team Providers + +------+ + | Care Gripper Attacher Name | Role | Phone | + [...] + + | 02/01/ | Emergency | [facility] | Zev Haji | Contusion of right | | 2017 | | [facility] | MD Akin [address] | leg, initial | | | | CENTER [address] | [address] [place] | encounter (Primary | | | | [place], [place] | [place] [address] | Dx); Other sprain of | | | | [address] | [phone] | right thumb, | | | | [phone] | | initial encounter | +--------+ + [...]
--- OUTSIDE RECORDS SUMMARY | ~2019-11-01 | XMS | Encounter Summary ---
Demographics + + + | Address | [address] | | | [place] [address] | + + + | Home Phone | | + + + | Preferred Language | Unknown | + + + | Marital Status | Unknown | + + + | Synagogue Affiliation | Unknown | + + + | Race | Unknown | + + + | Ethnic Group | Unknown | + + + Author + + + | Author | [facility] | | | and [place] | + + + | Organization | [facility] | | [...] Team Providers + +------+ + | Care Deadener Name | Role | Phone | + [...] | pain with | [address] [place] | [place], [place] | | | | | right-sided | [place], [place] | [address] Phone: | | | | | sciatica | [address] | [phone] | | | | | | Phone: | Fax: | | | | | | [phone] | [phone] | | | | | | Fax: | | | | | | | [phone] | | +--------+ + + + + [...] | | [address] | [address] [place] [address] | (Primary Dx); Lumbar | | | | [place], [place] | [address] [place] [address] [address] | radiculopathy; | | | | [address] | [address] | Lumbar disc | | | | [phone] | | herniation | +--------+---------+ + + [...] from the original. Joaquin Workman PA-C [address] [place] [address] PHONE: FAX: NEUROSURGERY HISTORY AND PHYSICAL EXAMINATION [...] has no apparent deficits with short or superintendent terminal memory. CRANIAL NERVES: II: Acuity is intact. [...]
--- OUTSIDE RECORDS SUMMARY | ~2019-11-01 | XMS | Encounter Summary ---
Demographics + + + | Address | [address] | | | [place] [address] | + + + | Home Phone | | + + + | Preferred Language | Unknown | + + + | Marital Status | Unknown | + + + | Denominational Affiliation | Unknown | + + + | Race | Unknown | + + + | Ethnic Group | Unknown | + + + Author + + + | Author | [facility] | | | and [place] | + + + | Organization | [facility] | | | and [place] [...] Team Providers + +------+ + | Care Digital Marketing Intern Name | Role | Phone | + [...] + + | 10/09/ | Emergency | [facility] MAR[facility] D | Juan Francisco Porras | Lumbar strain, | | 2018 | | MED [facility] EM[facility] | Kwadwo Jones MD | initial encounter | | | | CENTER [address] | [address] | (Primary Dx) | | | | [place], [place] | [place], [place] | | | | | [address] | [address] | | | | | [phone] | | | +--------+ + + + [...] sent through Care Everywhere.Lumbosacral Str ain, Understanding (Wolof)documented in this encounter Medications at Time of [...]
--- OUTSIDE RECORDS SUMMARY | ~2019-11-01 | XMS | Encounter Summary ---
Demographics + + + | Address | [address] | | | [place] [address] | + + + | Home Phone [...] | Organization | [facility] | | | and [place] | [...] Team Providers + +------+ + | Care Pulp Grinder Feeder Name | Role | Phone | + [...] | pain with | [address] [place] | [place], [place] | | | | | right-sided | [place], [place] | [address] Phone: | | | | | sciatica | [address] | [phone] | | | | | | Phone: | Fax: | | | | | | [phone] | [phone] | | | | | | Fax: | | | | | | | [phone] | | +--------+ + + + + [...] Services | Therapy / | Acute | Kjoo | Pt Op [address] | | | Required | Rehabilitatio | right-sided | MD Juan Francisco | [place] | | | | n | low back | [address] | [place], | | | | | pain with | [place] | [place] [address] | | | | | right-sided | [place], [place] | Phone: | | | | | sciatica | [address] | [phone] | | | | | | Phone: | Fax: | | | | | | [phone] | [phone] | | | | | | Fax: | | | | | | | [phone] | | +--------+ + + + + [...] | | | | CENTER [address] | [address] [place] | right-sided sciatica | | | | [place], [place] | [place] [address] | (Primary Dx); | | | | [address] | [phone] | Lumbar disc | | | | [phone] | | herniation | +--------+ + + [...] sent through Care Everywhere.Back Pain, Reli eving (Kenyan)Back Pain (Low): Self-Care (Kenyan)documented in this encounter Medications at Time of [...] | | | FILTRATION | mL/min/1.73m2 | [facility] | | | UZBEK | RATE,ESTIMATED | | MEDICAL | | | | mL/min/1.72j4Rlqy than | | CENTER - | | [...] [address] | [place] | [phone] | | [facility] | | [address] | | | - LABORATORY | | [...] [address] | [place] | [phone] | | [facility] | | [address] | | | - LABORATORY | | [...] ST. | [address] | [place], [place] | [phone] | | [facility] | | [address] | | | - LABORATORY | | [...] [address] | [place] | [phone] | | [facility] | | [address] | | | - LABORATORY | | [...] ST. | [address] | [place], [place] | [phone] | | [facility] | | [address] | | | - LABORATORY | | [...] [address] | [place] | [phone] | | [facility] | | [address] | | | - LABORATORY | | [...] + | [address] | [address] | [place] | [phone] | | [facility] | | [address] | | | - LABORATORY | | [...] [address] | [place] | [phone] | | [facility] | | [address] | | | - LABORATORY | | [...] [address] | [place] | [phone] | | [facility] | | [address] | | | - LABORATORY | | [...]
--- OUTSIDE RECORDS SUMMARY | 2019-11-01 17:24 | XMS ---
PreManage Notification: PASHA LOPEZ Security Supplies Packer Events No recent Security Events currently on file CRITERIA MET - Group Notification CARE PROVIDERS There are no care providers on record at this time. [facility] has no Care Guidelines for this patient. Care History Medical/Surgical 08/13/2019 [facility] - PATIENT DOES NOT HAVE A PCP- [facility] CALLED AND LEFT PATIENT A VOICEMAIL. - SENT PATIENT NO PCP LETTER. E.D. VISIT COUNT (12 MO.) 3 [facility] TOTAL 3 NOTE: Visits indicate total known visits. ED/UCC VISIT TRACKING (12 MO.) 11/01/2019 17:23 [facility] [place] TYPE: Emergency COMPLAINT: - CHEST PAIN, SOB 08/16/2019 19:30 [facility] TYPE: Urgent Care DIAGNOSES: - Cough - Nasal Congestion - Pneumonia, unspecified organism - Mild intermittent asthma, uncomplicated - Shortness of Breath 08/12/2019 16:03 [facility] [place] TYPE: Emergency COMPLAINT: - COUGH, NASAL CONGESTION, MSE TO CLINIC DIAGNOSES: - Nicotine dependence, other tobacco product, uncomplicated - Nasal congestion - Cough 08/10/2019 21:39 [facility] [place] TYPE: Emergency COMPLAINT: - UPPER RESPITORY ISSUE DIAGNOSES: - Unspecified asthma with (acute) exacerbation - Cough - Other shelter (current) drug therapy - Acute bronchitis, unspecified INPATIENT VISIT TRACKING (12 MO.) No inpatient visits to display in this time frame [email or web address]
[2019-11-01] MEDS ORDERED: PREDNISONE20 MG PO (18:41)
== END 2019-11-01 19:04 | disposition home or self-care (01) ==
LOC: ED 17:22
DX: J45.909 Unspecified asthma, uncomplicated (principal); Z87.891 Personal history of nicotine dependence; Z79.899 Other long term (current) drug therapy
CPT/HCPCS: 71046; 94640; 99284-25; J1100

== ENCOUNTER 2019-12-23 17:12 | Emergency (ER) | payer OTHER ==
[~2019-12-23] VITALS: Ht 188 cm; Wt 154.2 kg
--- OUTSIDE RECORDS SUMMARY | ~2019-12-23 | XMS | Encounter Summary ---
Demographics + + + | Address | [address] | | | [place] [address] | + + + | Home Phone | | + + + | Preferred Language | Unknown | + + + | Marital Status | Unknown | + + + | Evangelical Affiliation | Unknown | + + + | Race | Unknown | + + + | Ethnic Group | Unknown | + + + Author + + + | Author | [facility] | | | and [place] | + + + | Organization | [facility] | | | and [place] | + + + | Address | Unknown | + + + | Phone | Unavailable | + + + Support + + +---------+ + | Name | Relationship | Address | Phone | + + +---------+ + | Galo Walters | ECON | Unknown | | + + +---------+ + | Georgia Soto | ECON | Unknown | | + + +---------+ + Care Team Providers + +------+ + | Care Fundraising Manager Name | Role | Phone | + +------+ + | No Physician | PCP | Unavailable | + +------+ + Encounter Details +--------+ + + + + | Date | Type | Department | Care Team | Description | +--------+ + + + + | 12/14/ | Hospital | [facility] | Fletcher Ellis, | Back pain, | | 2018 | Encounter | MED CTR XRAY [address] | DO [address] | unspecified back | | | | [place] | [address] [place], [place] | location, | | | | [place] [address] | [address] | unspecified back | | | | [phone] | | pain laterality, | | | | | | unspecified | | | | | | chronicity | +--------+ + + + + Social History + + + +--------+------+ | Tobacco Use | Types | Packs/Day | Years | Date | | | | | Used | | + + + +--------+------+ | Current Every Day | E-Cigarettes | | | | | Smoker | | | | | + + + +--------+------+ + +---+---+---+ | Smokeless Tobacco: | | | | | Never Used | | | | + +---+---+---+ + + +---------+ + | Alcohol Use | Drinks/Week | oz/Week | Comments | + + +---------+ + | No | | | | + + +---------+ + + + + | Sex Assigned at | Date Recorded | | | | + + + | Not on file | | + + + documented as of this encounter Medications at Time of Discharge + + + +---------+--------+ + | Medication | Sig | Dispensed | Refills | Start | End Date | | | | | | Date | | + + + +---------+--------+ + | cetirizine | Take 10 mg by mouth | | 0 | | | | (ZYRTEC) 10 mg | Daily. | | | | | | tablet | | | | | | + + + +---------+--------+ + | cyclobenzaprine | Take 10 mg by mouth | | 0 | | | | (FLEXERIL) 10 mg | 3 times daily as | | | | | | tablet | needed for Muscle | | | | | | | spasms. | | | | | + + + +---------+--------+ + | diphenhydrAMINE | Take 50 mg by mouth | | 0 | | | | (BENADRYL) 25 mg | every 6 hours as | | | | 9 | | tablet | needed for Itching. | | | | | + + + +---------+--------+ + documented as of this encounter Plan of Treatment Not on filedocumented as of this encounter Procedures + +--------+ + + + | Procedure Name | Priori | Date/Time | Associated Diagnosis | Comments | | | ty | | | | + +--------+ + + + | XR LUMBAR SPINE 4 + | Routin | 12/14/2017 | Back pain, | Results for this | | VW | e | 2:04 PM | unspecified back | procedure are in the | | | | PDT | location, | results section. | | | | | unspecified back | | | | | | pain laterality, | | | | | | unspecified | | | | | | chronicity | | + +--------+ + + + documented in this encounter Results XR Lumbar Spine 4 + Vw (12/14/2017 2:04 PM PDT) + + | Specimen | + + | | + + + + + | Narrative | Performed At | + + + | XR LUMBAR SPINE 4 + VW 12/14/2017 2:04 PM HISTORY: back pain. | [facility] | | COMPARISON: MRI lumbar spine 10/12/2017. FINDINGS: No instability | | | is visualized during flexion and extension. Bone mineralization is | | | normal. Vertebral body height are preserved with no evidence for | | | compression fractures. Mild disc narrowing is at L4-5. Facet joints | | | are intact. Visualized ribs and pelvic osseous structures show no | | | acute findings. Soft tissue structures are unremarkable. | | | IMPRESSION - No instability. Dictated and Signed by: Collin | | | MD Surendra Electronically signed: 12/14/2017 2:21 PM | | + + + + + | Procedure Note | + + | Steffen, Rad Results In - 12/14/2017 2:25 PM PDT XR LUMBAR SPINE 4 + VW 12/14/2017 2:04 PM | | | | HISTORY: back pain. | | | | COMPARISON: MRI lumbar spine 10/12/2017. | | | | FINDINGS: | | No instability is visualized during flexion and extension. Bone mineralization | | is normal. Vertebral body height are preserved with no evidence for compression | | fractures. Mild disc narrowing is at L4-5. Facet joints are intact. Visualized | | ribs and pelvic osseous structures show no acute findings. Soft tissue | | structures are unremarkable. | | | | IMPRESSION - | | No instability. | | | | Dictated and Signed by: Collin Agosto MD | | Electronically signed: 12/14/2017 2:21 PM | + + + +---------+ + + | Performing | Address | City/State/Zipcode | Phone Number | | Organization | | | | + +---------+ + + | [facility] | | | | + +---------+ + + documented in this encounter Visit Diagnoses + + | Diagnosis | + + | Back pain, unspecified back location, unspecified back pain laterality, unspecified | | chronicity | + + documented in this encounter"
--- OUTSIDE RECORDS SUMMARY | ~2019-12-23 | XMS | Encounter Summary ---
Demographics + + + | Address | [address] | | | [place] [address] | + + + | Home Phone | | + + + | Preferred Language | Unknown | + + + | Marital Status | Unknown | + + + | Evangelical Affiliation | Unknown | + + + | Race | Unknown | + + + | Ethnic Group | Unknown | + + + Author + + + | Author | [facility] | | | and [place] | + + + | Organization | [facility] | | | and [place] [...] Team Providers + +------+ + | Care Automotive Engineer Name | Role | Phone | + +------+ + | [place] Physician | PCP | Unavailable | + +------+ + Reason for Visit + + + | Reason | Comments | + + + | Shortness of Breath | has been sick for 2 weeks, getting better, has been on | | | antibiotics, RM 6 | + + + | Cough | | + + + | Nasal Congestion | | + + + Encounter Details +--------+---------+ + + + | Date | Type | Department | Care Team | Description | +--------+---------+ + + + | 08/15/ | Office | [facility] | Drew Arroyo | Atypical pneumonia, | | 2020 | Visit | [facility] [address] | MD Marleen [address] | history of, | | | | [address] | [address] | improving (Primary | | | | [id number] | [id number] | Dx); Mild | | | | [phone] | | intermittent asthma | | | | | | without complication | +--------+---------+ + + + Social History + + [...] + + documented as of this encounter Last Filed Vital Signs + + + + + | Vital Sign | Reading | Time Taken | Comments | + + + + + | Blood Pressure | 129/60 | 08/16/2019 7:38 PM | | | | | PST | | + + + + + | Pulse | 81 | 08/16/2019 7:38 PM | | | | | PST | | + + + + + | Temperature | 36.2 C (97.1 F) | 08/16/2019 7:38 PM | | | | | PST | | + + + + + | Respiratory Rate | 16 | 08/16/2019 7:38 PM | | | | | PST | | + + + + + | Oxygen Saturation | 95% | 08/16/2019 7:38 PM | | | | | PST | | + + + + + | Inhaled Oxygen | - | - | | | Concentration | | | | + + + + + | Weight | 162 kg (357 lb 2.3 | 08/16/2019 7:38 PM | | | | oz) | PST | | + + + + + | Height | 185.4 cm (6' 1") | 08/16/2019 7:38 PM | | | | | PST | | + + + + + | Body Mass Index | 47.12 | 08/16/2019 7:38 PM | | | | | PST | | + + + + + documented in this encounter Patient Instructions Patient Instructions Drew Arroyo MD - 08/16/2019 7:30 PM PSTUse albuterol inhale r as needed as before. Drink plenty of fluids and get plenty of rest. Use [id number]-[id number] Tylenol or Advil as needed for fever, aches and pains. Lavage nose with saline solution 3-4 times a day to improve nasal congestion. Mix 1/2 teasp oon of table salt with 2 cups of lukewarm water for nasal irrigation. Use cool mist vaporizer in bedroom and living space to reduce cough and airway irritation. Gargle and spit out warm salt water to soothe sore throat. Use throat lozenges of choice an d/or Cepastat throat spray as needed. Take aprw-snh-uwjvypa Mucinex or equivalent product as needed for thick mucous. Use Robitussin-DM as needed for cough. Return or follow-up with your primary doctor if not better in 1 week, sooner if experiencin g difficulty swallowing liquids, progressive productive cough, associated chest pain, shortn ess of breath, progressive wheezing, fever, vomiting or progessive sinus pressure/headache. Understanding Asthma Asthma causes swelling and narrowing of the airways in your lungs. Medical experts are not exactly sure what causes asthma. It is believed to be caused by a mix of inherited and envir onmental factors. Healthy lungs Inside the lungs there are branching airways made of stretchy tissue. Each airway is wrappe d with bands of muscle. The airways become more narrow as they go deeper into the lungs. The smallest airways end in clusters of tiny balloon-like air sacs (alveoli). These clusters ar e surrounded by blood vessels. When you breathe in (inhale), air enters the lungs. It travel s down through the airways until it reaches the air sacs. When you breathe out (exhale), air travels up through the airways and out of the lungs. The airways produce mucus that traps p articles you breathe in. Normally, the mucus is then swept out of the lungs by tiny hairs (c daniel) that line the airways. The mucus is swallowed or coughed up. What the lungs do The air you inhale contains oxygen. Whenoxygen reaches the air sacs, it passes into the b lood vessels surrounding the sacs. Your blood then delivers oxygen to all of your cells. As you exhale, carbon dioxide is removed in a similar way from the blood in the air sacs, and f rom the body. When you have asthma People with asthma have very sensitive airways. This means the airways react to certain thi ngs called triggers (such as pollen, dust, or smoke)and become swollen and narrowed. Infla mmation makes the airways swollen and narrowed. This is a long-lasting (chronic) problem. Th e airways may not always be narrowed enough tonotice breathing problems. Symptoms of chronic inflammation: Coughing Chest tightness Shortness of breath Wheezing (a whistling noise, especially when breathing out) Low energy or feeling tired In some people, over time chronic mild inflammation can lead to lasting (permanent) scarrin g of airways and loss of lung function. Moderate flare-ups When sensitive airways are irritated by a trigger, the muscles around the airways tighten. The lining of the airways swells. Thick, sticky mucus increases and partly clogs the airways . All of this makes you work harder to keep breathing. Symptoms of moderate flare-ups: Coughing, especially at night Getting tired or out of breath easily Wheezing Chest tightness Faster breathing when at rest Severe flare-ups Severe flare-ups are life-threatening. In a severe flare-up, the muscle tightening, swellin g, and mucus production are even worse. It s very hard to breathe. Your body can't get cesar ugh oxygen and can't remove carbon dioxide. Waste gas is trapped in the alveoli, and gas exc hange can t occur. The body is not getting enough oxygen. Without oxygen, body tissues, es pecially brain tissue, begin to get damaged. If this goes on for long, it can lead to severe brain damage or . Call 911 (or have someone call for you) if you have any of these symptoms and they are not relieved right away by taking your quick-relief medicine as prescribed: Severe trouble breathing Too short of breath to talk or walk Lips or fingers turning blue Feeling lightheaded or dizzy,as though you are about to pass out Peak flow less than 50% of your personal best, if you use peak flow monitoring Asthma is a long-term condition. So it s important to work with your healthcare provider to manage it. If you smoke, get help to quit. Know your triggers and figure out how to avoid them. It s also very important to take your medicines as directed. That means taking them even when you feel good. Date Last Reviewed: 05/12/201619993212-7900 [employer]. [address] [place] [address], [place] [address]. All righ ts reserved. This information is not intended as a substitute for professional medical care. Always follow your healthcare professional's instructions. documented in this encounter Progress Notes Drew Arroyo MD - 08/16/2019 7:30 PM PSTFormatting of this note might be differen t from the original. Chief Complaint: Shortness of Breath (has been sick for 2 weeks, getting better, has been o n antibiotics, RM 6); Cough; and Nasal Congestion HPI: Campbell is a 24 y.o. male who comes in with his significant other for evaluation of cough, shortness of breath and nasal congestion for 2 weeks, improving after he finished Zpak 6 day s ago. Seen at in Only 6 days ago and given prednisone with scars on CXR. Reports t he doctor initially thought he may have some pneumonia, however, the radiologist reported on ly scar tissue. Today, he is feeling better. Started 2 weeks ago with nasal congestion and cough. Now, is experiencing resolved nasal congestion, improved post-nasal drainage, no head ache, resolved sinus pain/pressure, intermittent left ear ache, no eye irritation, no sore t hroat and improved cough, currently nonproductive. No measured fever, has sweats without chi lls. No body aches. No nausea or vomiting. Mild diarrhea. Improved shortness of breath, impr peggy wheezing with albuterol inhaler, improved anterior pleuritic chest burning/pain. Oscar t daily [facility] smoker and has hx of asthma on albuterol inhaler. Never hospitalized for the same. Has been taking prednisone, Zpak and albuterol with improvement in symptoms. No travel history outside the area in the last month. No known exposure to others ill after tr bowen to COVID-19 areas of concern. He presents with his girlfriend who has a similar illnes s. He requests to be rechecked. Patient's medications, allergies, past medical, surgical, social and family histories were reviewed and updated as appropriate. ROS: As found in the HPI. Objective: BP 129/60 | Pulse 81 | Temp 36.2 C (97.1 F) (Temporal) | Resp 16 | Ht 1.854 m (6' 1 ") | Wt (!) 162 kg (357 lb 2.3 oz) | SpO2 95% | BMI 47.12 kg/m General Appearance: Alert, cooperative, morbidly obese, young male in no distress, appears stated age. Non toxic appearance. Breathing comfortably and speaking in full sentences. e room is warm. His hair on the back of his head and collar line are damp from sweat. Head: Normocephalic, no facial sinus tenderness. No mastoid tenderness. Eyes: PERRL, conjunctiva clear without exudates. Ears: Unremarkable TM's with much cerumen in both external ear canals and gross normal hea ring. No tenderness with pressure on either tragus. Nose: Mildly congested with clear exudates. Throat: Erythematous, mildly edematous without exudates. Moist MM. Neck: Supple, symmetric, no anterior cervical adenopathy. Lungs: Morbidly obese chest. Completely clear to auscultation bilaterally, good air moveme nt without rales or wheezes, respirations unlabored. Cardiac: Quiet precordium, distant cardiac tones, regular rhythm, no murmur or hannah. No a nkle edema. Abdomen: Flat with normally active bowel sounds, soft, non tender. No organomegaly. Skin: Skin color, texture, turgor normal, no rash. I attempted to obtain a copy of his 2 view chest x-ray and the report from [facility] performed 6 days ago. The urgent care clinic and medical records offices were closed. After discussing the risks and benefits of repeat chest x-ray just 6 days after the initial without deterioration in symptoms, he agrees to not proceed. Assessment: 1. Atypical pneumonia, history of, improving 2. Mild intermittent asthma without complication Likely viral URI with cough and associated asthma exacerbation versus atypical pneumonia, i mproved after azithromycin, albuterol and steroid burst. Clinically appears to be improving with unremarkable exam. Opted against repeat chest x-ray this soon. She was given the jose juan bhakta instructions and will follow-up with his PCP, returning with any progressive symptoms . He does not meet criteria for Covid-19 testing. Plan: Use albuterol inhaler as needed as before. Drink plenty of fluids and get plenty of rest. Use eidu-trc-hndfihq Tylenol or Advil as needed for fever, aches and pains. Lavage nose with saline solution 3-4 times a day to improve nasal congestion. Mix 1/2 teasp oon of table salt with 2 cups of lukewarm water for nasal irrigation. Use cool mist vaporizer in bedroom and living space to reduce cough and airway irritation. Gargle and spit out warm salt water to soothe sore throat. Use throat lozenges of choice an d/or Cepastat throat spray as needed. Take cgkr-qiy-lfdboqg Mucinex or equivalent product as needed for thick mucous. Use Robitussin-DM as needed for cough. Return or follow-up with your primary doctor if not better in 1 week, sooner if experiencin g difficulty swallowing liquids, progressive productive cough, associated chest pain, shortn ess of breath, progressive wheezing, fever, vomiting or progessive sinus pressure/headache. Drew Arroyo MD documented in th is encounter Plan of Treatment Not on filedocumented as of this encounter Visit Diagnoses + + | Diagnosis | + + | Atypical pneumonia, history of, improving - Primary Pneumonia, organism unspecified | + + | Mild intermittent asthma without complication Unspecified asthma | + + documented in this encounter
--- OUTSIDE RECORDS SUMMARY | ~2019-12-23 | XMS | Encounter Summary ---
Demographics + + + | Address | [address] | | | [place] [address] | + + + | Home Phone | | + + + | Preferred Language | Unknown | + + + | Marital Status | Unknown | + + + | Jew Affiliation | Unknown | + + + | Race | Unknown | + + + | Ethnic Group | Unknown | + + + Author + + + | Author | [facility] | | | and [place] | + + + | Organization | [facility] | | | and [place] [...] Team Providers + +------+ + | Care Cable Tv Installer Name | Role | Phone | + +------+ + | No, Physician | PCP | Unavailable | + +------+ + Reason for Referral Evaluate & Treat (Routine) +--------+ + + + + + | Status | Reason | Specialty | Diagnoses / | Referred By | Referred To | | | | | Procedures | Contact | Contact | +--------+ + + + + + | Closed | Specialty | Neurosurgery | Diagnoses | Eladio, | Caleb, | | | Services | | Acute | Kojo | Fletcher Canales DO | | | Required | | right-sided | MD Juan Francisco | [address] | | | | | low back | [address] | [address] | | | | | pain with | [address] [place] | [place], [place] | | | | | right-sided | [place], [place] | [address] Phone: | | | | | sciatica | [phone] | [phone] | | | | | | Phone: | Fax: | | | | | | [phone] | [phone] | | | | | | Fax: | | | | | | | [phone] | | +--------+ + + + + + Evaluate & Treat (Routine) +--------+ + + + + + | Status | Reason | Specialty | Diagnoses / | Referred By | Referred To | | | | | Procedures | Contact | Contact | +--------+ + + + + + | Closed | Specialty | Physical | Diagnoses | Eladio, | [facility] | | | Services | Therapy / | Acute | Kojo | Pt Op [address] | | | Required | Rehabilitatio | right-sided | MD Juan Francisco | [place] | | | | n | low back | [address] | [place], | | | | | pain with | [place] | [place] [address] | | | | | right-sided | [place] | Phone: | | | | | sciatica | [id number] | [phone] | | | | | | Phone: | Fax: | | | | | | [phone] | [phone] | | | | | | Fax: | | | | | | | [phone] | | +--------+ + + + + + Reason for Visit + + + | Reason | Comments | + + + | Back Pain | | + + + Encounter Details +--------+ + + + + | Date | Type | Department | Care Team | Description | +--------+ + + + + | 10/12/ | Emergency | [facility] | Kojo Hendricks | Acute right-sided | | 2018 | | [facility] | MD Juan Francisco [address] | low back pain with | | | | CENTER [address] | [address] [place] | right-sided sciatica | | | | [place], [place] | [place] [address] | (Primary Dx); | | | | [address] | [phone] | Lumbar disc | | | | [phone] | | herniation | +--------+ + + + + Social History + +-------+ +--------+------+ | Tobacco Use | Types | Packs/Day | Years | Date | | | | | Used | | + +-------+ +--------+------+ | Passive Smoke | | | | | | Exposure - Never | | | | | | Smoker | | | | | + +-------+ +--------+------+ + +---+---+---+ | Smokeless Tobacco: | [...] + + + | Blood Pressure | 137/75 | 10/12/2017 6:55 PM | | | | | PDT | | + + + + + | Pulse | 86 | 10/12/2017 6:55 PM | | | | | PDT | | + + + + + | Temperature | 37.3 C (99.2 F) | 10/12/2017 6:12 PM | | | | | PDT | | + + + + + | Respiratory Rate | 16 | 10/12/2017 6:55 PM | | | | | PDT | | + + + + + | Oxygen Saturation | 96% | 10/12/2017 6:55 PM | | | | | PDT | | + + + + + | Inhaled Oxygen | - | - | | | Concentration | | | | + + + + + | Weight | 149.9 kg (330 lb 7.5 | 10/12/2017 2:16 PM | | | | oz) | PDT | | + + + + + | Height | 185.4 cm (6' 1") | 10/12/2017 2:16 PM | | | | | PDT | | + + + + + | Body Mass Index | 43.6 | 10/12/2017 2:16 PM | | | | | PDT | | + + + + + documented in this encounter Discharge Instructions AttachmentsThe following attachments cannot be sent through Care Everywhere.Back Pain, Reli eving (Croatian)Back Pain (Low): Self-Care (Croatian)documented in this encounter Medications at Time of Discharge + + + +---------+ + + | Medication | Sig | Dispensed | Refills | Start | End Date | | | | | | Date | | + + + +---------+ + + | cetirizine | Take 10 mg by mouth | | 0 | | | | (ZYRTEC) 10 mg | Daily. | | | | | | tablet | | | | | | + + + +---------+ + + | cyclobenzaprine | Take 1 tablet by | 10 | 0 | 10/13/19 | | | (FLEXERIL) 10 mg | mouth Twice daily | tablet | | 18 | 8 | | tablet | as needed for up to | | | | | | | 5 days. | | | | | + + + +---------+ + + | diphenhydrAMINE | Take 50 mg by mouth | | 0 | | | | (BENADRYL) 25 mg | every 6 hours as | | | | 9 | | tablet | needed for Itching. | | | | | + + + +---------+ + + | | Take 1-2 tablets by | 15 | 0 | 10/10/19 | | | HYDROcodone-acetamin | mouth every 6 hours | tablet | | 18 | 8 | | ophen (NORCO) 5-325 | as needed for Pain. | | | | | | mg per tablet | | | | | | + + + +---------+ + + | ibuprofen | Take 1 tablet by | 30 | 0 | 10/09/20 | | | (ADVIL,MOTRIN) 800 | mouth every 6 hours | tablet | | 18 | 8 | | MG tablet | as needed for Pain | | | | | | | for up to 10 days. | | | | | + + + +---------+ + + | methylPREDNISolone | Follow package | 21 | 0 | 10/13/19 | | | (MEDROL DOSEPAK) 4 | directions. | tablet | | 18 | 8 | | mg tablet | | | | | | + + + +---------+ + + | | Take 1 tablet by | 15 | 0 | 10/13/19 | | | oxyCODONE-acetaminop | mouth every 8 hours | tablet | | 18 | 8 | | hen (PERCOCET) 5-325 | as needed for up to | | | | | | mg per tablet | 5 days. | | | | | + + + +---------+ + + documented as of this encounter ED Notes Kojo Hendricks MD - 10/12/2017 2:17 PM PDTFormatting of this note might be diff erent from the original. [facility] Campbell Li Emergency Department Encounter Note [address] [place] [id number] PCP:No Physician on file [phone] CHIEF COMPLAINT: Chief Complaint Patient presents with Back Pain ED Room: ED01 [facility] Campbell Li is a 22 y.o. male who presents to the Emergency Department Pt reports he injured his back lifting a box on Monday and was seen for this on Monday an d given muscle relaxers and pain medication. Pt states he has lower back pain and now feels pain extending down his right leg. Right back pain up to 6/10 positionally exacerbated relieved by rest localized aching since injury last Monday. Seen on Monday responded well to home pain medication but on top of sci atic R leg pain now having numbness without weakness when sitting for long periods of time. No saddle anaesthesia, no incontinence or retention of bowels or bladder. Denies drug use ev er. PAST MEDICAL & SURGICAL HISTORY There are no active problems to display for this patient. History reviewed. No pertinent surgical history. CURRENT MEDICATIONS Previous Medications CETIRIZINE (ZYRTEC) 10 MG TABLET Take 10 mg by mouth Daily. DIPHENHYDRAMINE (BENADRYL) 25 MG TABLET Take 50 mg by mouth every 6 hours as needed for Itching. HYDROCODONE-ACETAMINOPHEN (NORCO) 5-325 MG PER TABLET Take 1-2 tablets by mouth every 6 hours as needed for Pain. IBUPROFEN (ADVIL,MOTRIN) 800 MG TABLET Take 1 tablet by mouth every 6 hours as needed f or Pain for up to 10 days. ALLERGIES No Known Allergies FAMILY AND SOCIAL HISTORY History reviewed. No pertinent family history. Social History Social History Marital status: Significant Other Spouse name: N/A Number of children: N/A Years of education: N/A Social History Main Topics Smoking status: Passive Smoke Exposure - Never Smoker Smokeless tobacco: Never Used Alcohol use No Drug use: No Sexual activity: Not Asked Other Topics Concern None Social History Narrative None REVIEW OF SYSTEMS As in history of present illness. A 10 system review was otherwise negative. PHYSICAL EXAM VITAL SIGNS: (first vital signs):Temp: 36.2 C (97.2 F) Pulse: 113 Resp: 16 SpO2: 98 % B P: (!) 161/92 Body mass index is 43.6 kg/m. Constitutional: Moderately uncomfortable male patient. HEENT: Atraumatic, PERRL, Oropharynx benign. Neck: Supple with full range of motion. No JVD, no lymphadenopathy, no meningismus and no cervical spine tenderness to palpation or step-off noted. Chest: Good air movement bilaterally. No wheezes, No, rales. Cardiovascular: Normal S1 S2 Abdomen: Soft, nontender., no rebound, guarding, or masses., bowel tones normal. and no pu lsatile masses. Back: Within normal limits, no CVA tenderness and no midline thoracic or lumbar spinal tend erness Extremities: Nontender. No lower extremity edema, no calf asymmetry. Present distal pulse s. Skin: Warm, Dry, No rashes Neurologic: Alert & oriented. No focal deficits, Speech normal, gait not tested Psychiatric: Normal mood, affect and judgement. There is no gross deformity on visual inspection. There is no evidence of prior back surgery. There is no CTLSC spine tenderness, gross deformity, or step off. There is no overlying cellulitis, abscess, or infectious change. There is no saddle anaesthesia. Sensation is intact and equal BL throughout both lower extremities. Strength is 5/5 and equal BL. Lower extremities are both NV intact and equal BL. Active and passive ROM are both intact and equal in lower extremities BL. Deep tendon reflexes are intact and equal BL at 2+. There is no clonus BL. Proprioception is intact and equal BL. The patient can ambulate at this time. EKG 12-lead EKG shows LABS Results for orders placed or performed during the hospital encounter of 10/12/17 Extra Lavender Top Tube Result Value Ref Range Extra Lavender Top Tube Done CBC with Differential Result Value Ref Range WBC 10.9 4.0 - 11.0 K/uL RBC 5.48 4.30 - 5.70 M/uL Hgb 15.6 13.5 - 18.0 g/dL Hct 46.6 40.0 - 51.0 % MCV 85.1 83.0 - 101.0 fL MCH 28.4 28.0 - 35.0 pg MCHC 33.4 32.0 - 36.0 g/dL RDW-CV 12.9 <15.0 % Platelet Count 243 140 - 440 K/uL MPV 8.9 fL % Neutrophils 77.8 45.0 - 82.0 % % Lymphocytes 14.2 (L) 20.0 - 45.0 % % Monocytes 5.1 4.0 - 12.0 % % Eosinophils 2.3 0.0 - 5.0 % % Basophils 0.6 0.0 - 1.0 % Absolute Neutrophils 8.50 1.80 - 8.50 K/uL Absolute Lymphocytes 1.50 0.60 - 3.20 K/uL Absolute Monocytes 0.60 0.00 - 1.00 K/uL Absolute Eosinophils 0.30 0.00 - 0.40 K/uL Absolute Basophils 0.10 0.00 - 0.10 K/uL Comprehensive Metabolic Panel Result Value Ref Range NA 140 136 - 149 mmol/L K 4.2 3.5 - 5.1 mmol/L CL 103 98 - 109 mmol/L CO2 27 24 - 31 mmol/L ANION GAP 10 3 - 16 mmol/L GLUCOSE 106 70 - 109 mg/dL BUN 12 7 - 18 mg/dL Creatinine, Serum/Plasma 0.79 0.60 - 1.30 mg/dL eGFR if not >60 >=60 mL/min/1.73m2 CALCIUM 10.0 8.3 - 10.5 mg/dL ALBUMIN 4.4 3.2 - 5.0 g/dL Bilirubin Total 0.8 0.1 - 1.5 mg/dL Total protein 7.4 6.0 - 7.8 g/dL AST 29 10 - 42 U/L ALT 52 (H) 6 - 45 U/L ALK PHOS 53 40 - 110 U/L GLOBULIN 3.0 2.1 - 3.8 g/dL Albumin/Globulin ratio 1.5 0.8 - 2.0 BUN/CREA 15.2 Protime INR Result Value Ref Range Protime 13.3 11.3 - 13.9 seconds INR 1.02 0.90 - 1.10 IMAGING STUDIES (X-Rays interpreted by ED Physician) MRI lumbar spine ED COURSE & MEDICAL DECISION MAKING Pertinent Labs & Imaging studies were reviewed along with EMS notes and penitentiary record s if applicable. (See chart for details) Medications and Allergy list reviewed. Nurses note and old records were reviewed The patient was seen and examined, Treated with percocet, flexeril, prednisone. MRI pursued due to change in symptoms likely has disc herniation though unlikely to have ac wainwright chord pathology. MRI shows posterior disc protrusion NS consultation recommended. Spoke with Dr. Denys MAS at [facility] whom reviews case no weakness or cauda equina syndrome at this time no indication for emergent NS or transfer but follow arranged with Dr. Ellis, additionally per manish given additional home pain medication and started on a medrol dose pack. He is als o placed on strict lifting precautions and provided a work not to which he verbalizes his un derstanding. He is given strict return precautions to which he verbalizes understanding. The patient remained hemodynamically stable within normal limits during their ED course, and sat comfortably in their bed in no apparent distress. The patient was counseled about their results and workup including all incidental findings and the need for out patient follow up to which they verbalized their understanding. The patient was counseled about the importance of medical recommendations today and the dangers including harm or of non adherence to the plan. They verbalize their understanding of today's plan and agree with it. They were counseled that emergency services are available to them 02/01 and to return to the ED immediately if symptoms return. The patient was given follow up. They were given further strict, thorough, actionable return precautions to which they verbalized their understanding. The patient's questions were answered and the patient agreed with the plan. The patient was discharged in good stable condition. Last Set of Vital Signs: Temp: 37.3 C (99.2 F) Pulse: 78 Resp: 16 SpO2: 96 % BP: 131/75 FINAL IMPRESSION ICD-10-CM ICD-9-CM 1. Acute right-sided low back pain with right-sided sciatica M54.41 724.2 724.3 2. Lumbar disc herniation M51.26 722.10 Follow-up Information Fletcher Ellis, DO. Call today. Specialty: Neurosurgery Contact information: [address] [address] Ben Tello, PT. Call today. Specialty: Physical Therapy Contact information: [address] [facility] [address] New Prescriptions CYCLOBENZAPRINE (FLEXERIL) 10 MG TABLET Take 1 tablet by mouth Twice daily as needed f or up to 5 days. METHYLPREDNISOLONE (MEDROL DOSEPAK) 4 MG TABLET Follow package directions. OXYCODONE-ACETAMINOPHEN (PERCOCET) 5-325 MG PER TABLET Take 1 tablet by mouth every 8 h ours as needed for up to 5 days. Administrations This Visit cyclobenzaprine (FLEXERIL) tablet 10 mg Admin Date 10/12/2017 Action Given Dose 10 mg Route Oral Administered By Christina George RN dexamethasone (DECADRON) 10 mg/mL injection 10 mg Admin Date 10/12/2017 Action Given Dose 10 mg Route Intravenous Administered By Korin Huffman RN predniSONE (DELTASONE) tablet 40 mg Admin Date 10/12/2017 Action Given Dose 40 mg Route Oral Administered By Christina George RN Portions of this chart were created with [employer] voice recognition software. Inadvertent so und alike substitutions may be present and are unintentional Kojo Hendricks MD 10/12/17 1826 laudio George RN - 10/12/2017 2:15 PM PDTPt reports he injured his back lifting a box on and was seen for this on Monday and given flexeril and hydrocodone. Pt states addiction "runs in my family" so he has not taken any of the hydrocodone, and has instead managed maury n with flexeril, ibuprofen, and marijuana. Pt states he has lower back pain and now feels p ain extending down his right leg. Electronically signed by Christina George RN at 08/2017 2:19 PM PDTdocumented in this encounter Plan of Treatment + + +--------+ + + | Name | Type | Priori | Associated Diagnoses | Order Schedule | | | | ty | | | + + +--------+ + + | Physical Therapy - | Outpatient | Routin | Acute right-sided | Ordered: 10/12/2017 | | Ambulatory Referral | Referral | e | low back pain with | | | | | | right-sided sciatica | | + + +--------+ + + | Neurosurgery, | Outpatient | Routin | Acute right-sided | Ordered: 10/12/2017 | | External - AMB | Referral | e | low back pain with | | | Referral | | | right-sided sciatica | | + + +--------+ + + documented as of this encounter Procedures + +--------+ + + + | Procedure Name | Priori | Date/Time | Associated Diagnosis | Comments | | | ty | | | | + +--------+ + + + | EXTRA LAVENDER TOP | STAT | 10/12/2017 | | Results for this | | TUBE | | 5:40 PM | | procedure are in the | | | | PDT | | results section. | + +--------+ + + + | EXTRA GREEN TOP TUBE | STAT | 10/12/2017 | | Results for this | | | | 5:40 PM | | procedure are in the | | | | PDT | | results section. | + +--------+ + + + | CBC WITH | STAT | 10/12/2017 | | Results for this | | DIFFERENTIAL | | 5:40 PM | | procedure are in the | | | | PDT | | results section. | + +--------+ + + + | COMPREHENSIVE | STAT | 10/12/2017 | | Results for this | | METABOLIC PANEL | | 5:40 PM | | procedure are in the | | | | PDT | | results section. | + +--------+ + + + | EXTRA LAVENDER TOP | STAT | 10/12/2017 | | Results for this | | TUBE | | 5:39 PM | | procedure are in the | | | | PDT | | results section. | + +--------+ + + + | EXTRA GREEN TOP TUBE | STAT | 10/12/2017 | | Results for this | | | | 5:39 PM | | procedure are in the | | | | PDT | | results section. | + +--------+ + + + | EXTRA GOLD TOP TUBE | STAT | 10/12/2017 | | Results for this | | | | 5:39 PM | | procedure are in the | | | | PDT | | results section. | + +--------+ + + + | EXTRA BLUE TOP TUBE | STAT | 10/12/2017 | | Results for this | | | | 5:39 PM | | procedure are in the | | | | PDT | | results section. | + +--------+ + + + | PROTIME INR | STAT | 10/12/2017 | | Results for this | | | | 5:39 PM | | procedure are in the | | | | PDT | | results section. | + +--------+ + + + | MRI LUMBAR SPINE WO | STAT | 10/12/2017 | | Results for this | | CONTRAST | | 3:28 PM | | procedure are in the | | | | PDT | | results section. | + +--------+ + + + documented in this encounter Results Comprehensive Metabolic Panel (10/12/2017 5:40 PM PDT) + + + + + + | Component | Value | Ref Range | Performed | Pathologist | | | | | At | Signature | + + + + + + | Na | 140 | 136 - 149 | [facility] | | | | | mmol/L | [facility] | | | | | | [facility] | | | | | | [facility] - | | | | | | LABORATORY | | + + + + + + | K | 4.2 | 3.5 - 5.1 | [facility] | | | | | mmol/L | [facility] | | | | | | MEDICAL | | | | | | CENTER - | | | | | | LABORATORY | | + + + + + + | Cl | 103 | 98 - 109 mmol/L | [facility] | | | | | | [facility] | | | | | | MEDICAL | | | | | | CENTER - | | | | | | LABORATORY | | + + + + + + | CO2 | 27 | 24 - 31 mmol/L | [facility] | | | | | | [facility] | | | | | | MEDICAL | | | | | | CENTER - | | | | | | LABORATORY | | + + + + + + | Anion Gap | 10 | 3 - 16 mmol/L | [facility] | | | | | | [facility] | | | | | | MEDICAL | | | | | | CENTER - | | | | | | LABORATORY | | + + + + + + | Glucose | 106 | 70 - 109 mg/dL | [facility] | | | | | | [facility] | | | | | | [facility] | | | | | | CENTER - | | | | | | LABORATORY | | + + + + + + | BUN | 12 | 7 - 18 mg/dL | [facility] | | | | | | [facility] | | | | | | MED[facility] | | | | | | CENTER - | | | | | | LABORATORY | | + + + + + + | Creatinine | 0.79 | 0.60 - 1.30 | [facility] | | | | | mg/dL | [facility] | | | | | | MEDICAL | | | | | | CENTER - | | | | | | LABORATORY | | + + + + + + | eGFR if not | >60Comment: GLOMERULAR | >=60 | [facility] | | | | FILTRATION | mL/min/1.73m2 | [facility] | | | [facility] | RATE,ESTIMATED | | MEDICAL | | | | mL/min/1.45n4Gmqj than | | CENTER - | | | | 60 Chronic kidney | | LABORATORY | | | | disease,if found over a | | | | | | 3-month period.Less than | | | | | | 15 Kidney failureFor | | | | | | | | | | | | Americans,multiply the | | | | | | calculated GFR by 1.21. | | | | | | | | | | + + + + + + | Calcium | 10.0 | 8.3 - 10.5 | [facility] | | | | | mg/dL | [facility] | | | | | | [facility] | | | | | | CENTER - | | | | | | LABORATORY | | + + + + + + | Albumin | 4.4 | 3.2 - 5.0 g/dL | [facility] | | | | | | [facility] | | | | | | MEDICAL | | | | | | CENTER - | | | | | | LABORATORY | | + + + + + + | Bilirubin | 0.8Comment: This is an | 0.1 - 1.5 mg/dL | [facility] | | | Total | appended report. These | | [facility] | | | | results have been | | MEDICAL | | | | appended to a previously | | CENTER - | | | | preliminary verified | | LABORATORY | | | | report. | | | | + + + + + + | Total | 7.4 | 6.0 - 7.8 g/dL | [facility] | | | Protein | | | [facility] | | | | | | MEDICAL | | | | | | CENTER - | | | | | | LABORATORY | | + + + + + + | AST | 29Comment: This is an | 10 - 42 U/L | [facility] | | | | appended report. These | | [facility] | | | | results have been | | MEDICAL | | | | appended to a previously | | CENTER - | | | | preliminary verified | | LABORATORY | | | | report. | | | | + + + + + + | ALT | 52 (H)Comment: This is | 6 - 45 U/L | [facility] | | | | an appended report. | | [facility] | | | | These results have been | | MEDICAL | | | | appended to a previously | | CENTER - | | | | preliminary verified | | LABORATORY | | | | report. | | | | + + + + + + | Alkaline | 53Comment: This is an | 40 - 110 U/L | [facility] | | | Phosphatase | appended report. These | | [facility] | | | | results have been | | MEDICAL | | | | appended to a previously | | CENTER - | | | | preliminary verified | | LABORATORY | | | | report. | | | | + + + + + + | Globulin | 3.0 | 2.1 - 3.8 g/dL | [facility] | | | | | | [facility] | | | | | | MEDICAL | | | | | | CENTER - | | | | | | LABORATORY | | + + + + + + | Albumin/Nery | 1.5 | 0.8 - 2.0 | [facility] | | | bulin Ratio | | | [facility] | | | | | | MEDICAL | | | | | | CENTER - | | | | | | LABORATORY | | + + + + + + | BUN/Creatin | 15.2 | | [facility] | | | ine Ratio | | | [facility] | | | | | | MEDICAL | | | | | | CENTER - | | | | | | LABORATORY | | + + + + + + + + | Specimen | + + | Blood | + + + + + + + | Performing | Address | City/State/Zipcode | Phone Number | | Organization | | | | + + + + + | [facility] | [address] | [place] | [phone] | | [facility] | | [address] | | | - LABORATORY | | | | + + + + + CBC with Differential (10/12/2017 5:40 PM PDT) + + + + + + | Component | Value | Ref Range | Performed | Pathologist | | | | | At | Signature | + + + + + + | White Blood | 10.9 | 4.0 - 11.0 K/uL | [facility] | | | Cells | | | [facility] | | | | | | [facility] | | | | | | CENTER - | | | | | | LABORATORY | | + + + + + + | Red Blood | 5.48 | 4.30 - 5.70 | [facility] | | | Cells | | M/uL | [facility] | | | | | | MEDICAL | | | | | | CENTER - | | | | | | LABORATORY | | + + + + + + | Hemoglobin | 15.6 | 13.5 - 18.0 | [facility] | | | | | g/dL | [facility] | | | | | | MEDICAL | | | | | | CENTER - | | | | | | LABORATORY | | + + + + + + | Hematocrit | 46.6 | 40.0 - 51.0 % | [facility] | | | | | | [facility] | | | | | | [facility] | | | | | | C[facility] - | | | | | | LABORATORY | | + + + + + + | MCV | 85.1 | 83.0 - 101.0 fL | [facility] | | | | | | [facility] | | | | | | MEDICAL | | | | | | CENTER - | | | | | | LABORATORY | | + + + + + + | MCH | 28.4 | 28.0 - 35.0 pg | [facility] | | | | | | [facility] | | | | | | [facility]ICAL | | | | | | CENTER - | | | | | | LABORATORY | | + + + + + + | MCHC | 33.4 | 32.0 - 36.0 | [facility] | | | | | g/dL | [facility] | | | | | | MEDICAL | | | | | | CENTER - | | | | | | LABORATORY | | + + + + + + | RDW-CV | 12.9 | <15.0 % | [facility] | | | | | | [facility] | | | | | | [facility]ICAL | | | | | | CENTER - | | | | | | LABORATORY | | + + + + + + | Platelet | 243 | 140 - 440 K/uL | [facility] | | | Count | | | [facility] | | | | | | MEDICAL | | | | | | CENTER - | | | | | | LABORATORY | | + + + + + + | MPV | 8.9 | fL | [facility] | | | | | | [facility] | | | | | | [facility]ICAL | | | | | | CENTER - | | | | | | LABORATORY | | + + + + + + | % | 77.8 | 45.0 - 82.0 % | [facility] | | | Neutrophils | | | [facility] | | | | | | MEDICAL | | | | | | CENTER - | | | | | | LABORATORY | | + + + + + + | % | 14.2 (L) | 20.0 - 45.0 % | [facility] | | | Lymphocytes | | | [facility] | | | | | | MEDICAL | | | | | | CENTER - | | | | | | LABORATORY | | + + + + + + | % Monocytes | 5.1 | 4.0 - 12.0 % | [facility] | | | | | | [facility] | | | | | | [facility] | | | | | | CENTER - | | | | | | LABORATORY | | + + + + + + | % | 2.3 | 0.0 - 5.0 % | [facility] | | | Eosinophils | | | [facility] | | | | | | MEDICAL | | | | | | CENTER - | | | | | | LABORATORY | | + + + + + + | % Basophils | 0.6 | 0.0 - 1.0 % | [facility] | | | | | | [facility] | | | | | | MEDICAL | | | | | | CENTER - | | | | | | LABORATORY | | + + + + + + | Absolute | 8.50 | 1.80 - 8.50 | [facility] | | | Neutrophils | | K/uL | [facility] | | | | | | MEDICAL | | | | | | CENTER - | | | | | | LABORATORY | | + + + + + + | Absolute | 1.50 | 0.60 - 3.20 | [facility] | | | Lymphocytes | | K/uL | [facility] | | | | | | MEDICAL | | | | | | CENTER - | | | | | | LABORATORY | | + + + + + + | Absolute | 0.60 | 0.00 - 1.00 | [facility] | | | Monocytes | | K/uL | [facility] | | | | | | MEDICAL | | | | | | CENTER - | | | | | | LABORATORY | | + + + + + + | Absolute | 0.30 | 0.00 - 0.40 | [facility] | | | Eosinophils | | K/uL | [facility] | | | | | | MEDICAL | | | | | | CENTER - | | | | | | LABORATORY | | + + + + + + | Absolute | 0.10 | 0.00 - 0.10 | [facility] | | | Basophils | | K/uL | [facility] | | | | | | MEDICAL | | | | | | CENTER - | | | | | | LABORATORY | | + + + + + + + + | Specimen | + + | Blood | + + + + + + + | Performing | Address | City/State/Zipcode | Phone Number | | Organization | | | | + + + + + | [facility] | [address] | [place] | [phone] | | [facility] | | [address] | | | - LABORATORY | | | | + + + + + Extra Green Top Tube (10/12/2017 5:40 PM PDT) + +-------+ + + + | Component | Value | Ref Range | Performed | Pathologist | | | | | At | Signature | + +-------+ + + + | Extra Green | Done | | [facility] | | | Top Tube | | | [facility] | | | | | | MEDICAL | | | | | | CENTER - | | | | | | LABORATORY | | + +-------+ + + + + + | Specimen | + + | Blood | + + + + + + + | Performing | Address | City/State/Zipcode | Phone Number | | Organization | | | | + + + + + | [facility] | [address] | [place] | [phone] | | [facility] | | [address] | | | - LABORATORY | | | | + + + + + Extra Lavender Top Tube (10/12/2017 5:40 PM PDT) + +-------+ + + + | Component | Value | Ref Range | Performed | Pathologist | | | | | At | Signature | + +-------+ + + + | Extra | Done | | [facility] | | | Lavender | | | [facility] | | | Top Tube | | | MEDICAL | | | | | | CENTER - | | | | | | LABORATORY | | + +-------+ + + + + + | Specimen | + + | Blood | + + + + + + + | Performing | Address | City/State/Zipcode | Phone Number | | Organization | | | | + + + + + | [facility] | [address] | [place] | [phone] | | [facility] | | [address] | | | - LABORATORY | | | | + + + + + Protime INR (10/12/2017 5:39 PM PDT) + + + + + + | Component | Value | Ref Range | Performed | Pathologist | | | | | At | Signature | + + + + + + | Prothrombin | 13.3 | 11.3 - 13.9 | [facility] | | | Time | | seconds | [facility] | | | | | | MEDICAL | | | | | | CENTER - | | | | | | LABORATORY | | + + + + + + | INR | 1.02Comment: Usual Oral | 0.90 - 1.10 | [facility] | | | | Anticoagulation Range: | | [facility] | | | | 2.0 - 3.0High | | MEDICAL | | | | Level Oral | | CENTER - | | | | Anticoagulation Range: | | LABORATORY | | | | 2.5 - 3.5 | | | | + + + + + + + + | Specimen | + + | Blood | + + + + + + + | Performing | Address | City/State/Zipcode | Phone Number | | Organization | | | | + + + + + | [facility] | [address] | [place] | [phone] | | [facility] | | [address] | | | - LABORATORY | | | | + + + + + Extra Lavender Top Tube (10/12/2017 5:39 PM PDT) + +-------+ + + + | Component | Value | Ref Range | Performed | Pathologist | | | | | At | Signature | + +-------+ + + + | Extra | Done | | [facility] | | | Lavender | | | [facility] | | | Top Tube | | | MEDICAL | | | | | | CENTER - | | | | | | LABORATORY | | + +-------+ + + + + + | Specimen | + + | Blood | + + + + + + + | Performing | Address | City/State/Zipcode | Phone Number | | Organization | | | | + + + + + | [facility] | [address] | [place] | [phone] | | [facility] | | [address] | | | - LABORATORY | | | | + + + + + Extra Green Top Tube (10/12/2017 5:39 PM PDT) + +-------+ + + + | Component | Value | Ref Range | Performed | Pathologist | | | | | At | Signature | + +-------+ + + + | Extra Green | Done | | [facility] | | | Top Tube | | | [facility] | | | | | | MEDICAL | | | | | | CENTER - | | | | | | LABORATORY | | + +-------+ + + + + + | Specimen | + + | Blood | + + + + + + + | Performing | Address | City/State/Zipcode | Phone Number | | Organization | | | | + + + + + | [facility] | [address] | [place] | [phone] | | [facility] | | [address] | | | - LABORATORY | | | | + + + + + Extra Blue Top Tube (10/12/2017 5:39 PM PDT) + +-------+ + + + | Component | Value | Ref Range | Performed | Pathologist | | | | | At | Signature | + +-------+ + + + | Extra Blue | Done | | [facility] | | | Top Tube | | | [facility] | | | | | | MEDICAL | | | | | | CENTER - | | | | | | LABORATORY | | + +-------+ + + + + + | Specimen | + + | Blood | + + + + + + + | Performing | Address | City/State/Zipcode | Phone Number | | Organization | | | | + + + + + | [facility] | [address] | [place] | [phone] | | [facility] | | [address] | | | - LABORATORY | | | | + + + + + Extra Gold Top Tube (10/12/2017 5:39 PM PDT) + +-------+ + + + | Component | Value | Ref Range | Performed | Pathologist | | | | | At | Signature | + +-------+ + + + | Extra Gold | Done | | [facility] | | | Top Tube | | | [facility] | | | | | | MEDICAL | | | | | | CENTER - | | | | | | LABORATORY | | + +-------+ + + + + + | Specimen | + + | Blood | + + + + + + + | Performing | Address | City/State/Zipcode | Phone Number | | Organization | | | | + + + + + | [facility] | [address] | [place] | [phone] | | [facility] | | [address] | | | - LABORATORY | | | | + + + + + MRI Lumbar Spine wo Contrast (10/12/2017 3:28 PM PDT) + + | Specimen | + + | | + + + + + | Narrative | Performed At | + + + | MRI LUMBAR SPINE WO CONTRAST 10/12/2017 3:14 PM HISTORY: BACK | [facility] | | PAIN. COMPARISON: None. PROTOCOL: Sagittal T2, sagittal T1, | | | axial T2, axial T1, sagittal STIR, coronal T2. FINDINGS: | | | Vertebral body heights are preserved. L3-4: Small posterior disc | | | protrusion is identified. Borderline mild narrowing of the thecal sac | | | at this level. L4-5: Severe central disc protrusion extending 10 | | | mm in AP dimension p.m. on the posterior disc margin and measuring | | | approximately 18 mm in transverse dimension. This causes severe | | | central spinal stenosis with complete effacement of the CSF collar | | | and mild mass effect at this level. Thecal sac measures 4.7 mm in | | | midline AP dimension. Disc bulge is noted to only cause mild | | | bilateral inferior neural foraminal narrowing. Surrounding STIR | | | signal is seen at this level. Cannot exclude component of increased | | | signal within the nerve roots at this level, please correlate for | | | symptoms of cauda equina in the appropriate clinical setting. | | | L5-S1: No central canal or neural foramina canal stenosis. Imaged | | | abdomen and pelvis demonstrate no acute findings. IMPRESSION - | | | L4-5: Severe central disc protrusion extending 10 mm in AP dimension | | | p.m. on the posterior disc margin and measuring approximately 18 mm | | | in transverse dimension. This causes severe central spinal stenosis | | | with complete effacement of the CSF collar and mild mass effect at | | | this level. Thecal sac measures 4.7 mm in midline AP dimension. | | | Surrounding STIR signal is seen at this level. Cannot exclude | | | component of increased signal within the nerve roots at this level, | | | please correlate for symptoms of cauda equina in the appropriate | | | clinical setting. Background of somewhat prominent epidural | | | lipomatosis causing multilevel narrowing of the thecal sac which is | | | mild at L3-L4 and severe below the level of L4-L5. Dictated and | | | Signed by: Cecil Gee MD Electronically signed: 10/12/2017 5:19 | | | PM | | + + + + + | Procedure Note | + + | Steffen, Rad Results In - 10/12/2017 5:22 PM PDT MRI LUMBAR SPINE WO CONTRAST 10/12/2017 | | 3:14 PM HISTORY: BACK PAIN.COMPARISON: None.PROTOCOL: Sagittal T2, sagittal T1, axial | | T2, axial T1, sagittal STIR, coronalT2.FINDINGS:Vertebral body heights are preserved. | | L3-4: Small posterior disc protrusion is identified. Borderline mild narrowingof the | | thecal sac at this level. L4-5: Severe central disc protrusion extending 10 mm in AP | | dimension p.m. on theposterior disc margin and measuring approximately 18 mm in | | transverse dimension.This causes severe central spinal stenosis with complete effacement | | of the CSFcollar and mild mass effect at this level. Thecal sac measures 4.7 mm in | | midlineAP dimension. Disc bulge is noted to only cause mild bilateral inferior | | neuralforaminal narrowing. Surrounding STIR signal is seen at this level. Cannotexclude | | component of increased signal within the nerve roots at this level,please correlate for | | symptoms of cauda equina in the appropriate clinicalsetting. L5-S1: No central canal or | | neural foramina canal stenosis.Imaged abdomen and pelvis demonstrate no acute | | findings.IMPRESSION -L4-5: Severe central disc protrusion extending 10 mm in AP | | dimension p.m. on theposterior disc margin and measuring approximately 18 mm in | | transverse dimension.This causes severe central spinal stenosis with complete effacement | | of the CSFcollar and mild mass effect at this level. Thecal sac measures 4.7 mm in | | midlineAP dimension. Surrounding STIR signal is seen at this level. Cannot | | excludecomponent of increased signal within the nerve roots at this level, | | pleasecorrelate for symptoms of cauda equina in the appropriate clinical setting. | | Background of somewhat prominent epidural lipomatosis causing multilevelnarrowing of the | | thecal sac which is mild at L3-L4 and severe below the level ofL4-L5.Dictated and | | Signed by: Cecil Gee MD Electronically signed: 10/12/2017 5:19 PM | |setting. | | | |L5-S1: No central canal or neural foramina canal stenosis. | | | |Imaged abdomen and pelvis demonstrate no acute findings. | | | |IMPRESSION - | |L4-5: Severe central disc protrusion extending 10 mm in AP dimension p.m. on the | |posterior disc margin and measuring approximately 18 mm in transverse dimension. | |This causes severe central spinal stenosis with complete effacement of the CSF | |collar and mild mass effect at this level. Thecal sac measures 4.7 mm in midline | |AP dimension. Surrounding STIR signal is seen at this level. Cannot exclude | |component of increased signal within the nerve roots at this level, please | |correlate for symptoms of cauda equina in the appropriate clinical setting. | | | |Background of somewhat prominent epidural lipomatosis causing multilevel | |narrowing of the thecal sac which is mild at L3-L4 and severe below the level of | |L4-L5. | | | |Dictated and Signed by: Cecil Gee MD | | Electronically signed: 10/12/2017 5:19 PM | + + + +---------+ + + | Performing | Address | City/State/Zipcode | Phone Number | | Organization | | | | + +---------+ + + | [facility] | | | | + +---------+ + + documented in this encounter Visit Diagnoses + + | Diagnosis | + + | Acute right-sided low back pain with right-sided sciatica - Primary | + + | Lumbar disc herniation Displacement of lumbar intervertebral disc without myelopathy | + + documented in this encounter Administered Medications + +--------+ +-------+------+------+ | Medication Order | MAR | Action | Dose | Rate | Site | | | Action | Date | | | | + +--------+ +-------+------+------+ | cyclobenzaprine (FLEXERIL) | Given | 10/13/19 | 10 mg | | | | tablet 10 mg 10 mg, Oral, ONCE, | | 18 2:41 | | | | | Noemi 10/12/17 at 1440, For 1 dose | | PM PDT | | | | + +--------+ +-------+------+------+ +---+---+ | | | +---+---+ + +-------+ +-------+---+---+ | dexamethasone (DECADRON) 10 | Given | 10/13/19 | 10 mg | | | | mg/mL injection 10 mg 10 mg, | | 18 5:48 | | | | | Intravenous, ONCE, Noemi 10/12/17 at | | PM PDT | | | | | 1745, For 1 dose, When ordered IV | | | | | | | push: Dilute to 10-20 mL with NS | | | | | | | and give slowly over 1-2 | | | | | | | minutes., | | | | | | + +-------+ +-------+---+---+ +---+---+ | | | +---+---+ + +-------+ +-------+---+---+ | predniSONE (DELTASONE) tablet | Given | 10/13/19 | 40 mg | | | | 40 mg 40 mg, Oral, ONCE, Noemi | | 18 2:41 | | | | | 10/12/17 at 1440, For 1 dose | | PM PDT | | | | + +-------+ +-------+---+---+ +---+---+ | | | +---+---+ documented in this encounter
--- OUTSIDE RECORDS SUMMARY | ~2019-12-23 | XMS | Clinical Summary ---
Demographics + + + | Address | [address] | | | [place] [address] | + + + | Home Phone | | + + + | Preferred Language | Unknown | + + + | Marital Status | Unknown | + + + | Cheondoism Affiliation | Unknown | + + + | Race | Unknown | + + + | Ethnic Group | Unknown | + + + Author + + + | Author | [facility] | | | and [place] | + + + | Organization | [facility] | | | and [...] [place] Soto | ECON | Unknown | + | + + +---------+ + Care Team Providers + +------+ + | Care Dolphin Trainer Name | Role | Phone | + +------+ + | No, Physician | PCP | Unavailable | + +------+ + Allergies No Known Allergies Medications + + + +---------+------+------+-------+ | Medication | Sig | Dispensed | Refills | Star | End | Statu | | | | | | t | Date | s | | | | | | Date | | | + + + +---------+------+------+-------+ | cetirizine | Take 10 mg by mouth | | 0 | | | Activ | | (ZYRTEC) 10 mg | Daily. | | | | | e | | tablet | | | | | | | + + + +---------+------+------+-------+ | cyclobenzaprine | Take 10 mg by mouth | | 0 | | | Activ | | (FLEXERIL) 10 mg | 3 times daily as | | | | | e | | tablet | needed for Muscle | | | | | | | | spasms. | | | | | | + + + +---------+------+------+-------+ Active Problems No known active problems Social History + + + +--------+------+ | [...] on file | | + + + Last Filed Vital Signs + + + [...] | | + + + + + Plan of Treatment + + + + + | Health Maintenance | Due Date | Last | Comments | | | | Done | | + + + + + | Vaccine: | | | | | Pneumococcal 19-64 | 3 | | | | (1 of 1 - PPSV23) | | | | + + + + + | Vaccine: Influenza | | 04/28/20 | | | (#1) | 0 | 11 | | + + + + + | Vaccine: | | 02/15/20 | | | Dtap/Tdap/Td (2 - | | 17 | | | Td) | | | | + + + + + Results Not on filefrom Last 3 Months Insurance + +--------+ +--------+ +---------+--------+ | Payer | Benefi | Subscriber | Effect | Phone | Address | Type | | | t Plan | ID | shelley | | | | | | / | | Dates | | | | | | Group | | | | | | + +--------+ +--------+ +---------+--------+ | [employer] | [employer] | [id number] | 08/16/19 | [phone] | | Medica | | MEDICAID HMO | HEALTH | | 20-Pre | 1 | | id | | | MDCD | | sent | | | | | | [place] | | | | | | + +--------+ +--------+ +---------+--------+ + +--------+ +--------+ + + | Guarantor Name | Accoun | Relation to | Date | Phone | Billing Address | | | t Type | Patient | of | | | | | | | | | | + +--------+ +--------+ + + | Campbell Li | Person | Self [birth year] | [address] | | [place] | al/Fam | | 1995 | [phone] | [address] | | | [place] | | | [address] (Home) | [place] [id number] | + +--------+ +--------+ + + Advance Directives + + + + + | Type | Date Recorded | Patient | Explanation | | | | Calibrator Barometers | | + + + + + | Power of | | | | | Community Liaison Officer | | | | + + + + + | Advance | 02/01/2017 6:05 | | | | Directive | PM | | | + + + + +
--- OUTSIDE RECORDS SUMMARY | ~2019-12-23 | XMS | Encounter Summary ---
Demographics + + + | Address | [address] | | | [place] [address] | + + + | Home Phone | | + + + | Preferred Language | Unknown | + + + | Marital Status | Unknown | + + + | Confucianism Affiliation | Unknown | + + + | Race | Unknown | + + + | Ethnic Group | Unknown | + + + Author + + + | Author | [facility] | | | and [place] | + + + | Organization | [facility] | | | and [place] | [...] Providers + +------+ + | Care Commercial Lines Account Manager Name | Role | Phone | [...] [address] | [address] [place], [place] | location, | | | | [place], [place] | [address] | unspecified back | | | | [address] | | pain laterality, | | | | [phone] | | unspecified | | | | [...]
--- OUTSIDE RECORDS SUMMARY | ~2019-12-23 | XMS | Encounter Summary ---
Demographics + + + | Address | [address] | | | [place] [address] | + + + | Home Phone | | + + + | Preferred Language | Unknown | + + + | Marital Status | Unknown | + + + | Confucianist Affiliation | Unknown | + + + | Race | Unknown | + + + | Ethnic Group | Unknown | + + + Author + + + | Author | [facility] | | | and [place] | + + + | Organization | [facility] | | | and [...] Team Providers + +------+ + | Care Brake Repairer Railroad Name | Role | Phone | + +------+ + | No, Physician | PCP | Unavailable | + +------+ + Reason for Visit + +--------+ + | Reason | Onset | Comments | | | Date | | + +--------+ + | Symptom Management | 08/16/ | COVID | | | 2020 | | + +--------+ + Encounter Details +--------+ + + + + | Date | Type | Department | Care Team | Description | +--------+ + + + + | 08/16/ | Telephone | [facility] | [place] | Symptom Management | | 2020 | | CARE [address] | MD Marleen [address] | (COVID) | | | | [place] | [place] | | | | | [address] | [id number] | | | | | [phone] | | | +--------+ + + + [...] + + documented as of this encounter Miscellaneous Notes Telephone Encounter - Simona Winchester, RN - 08/21/2019 11:24 AM PDTCalled and left voic email letting patient know I was trying to reach him for follow up. He screened out for need ing COVID test per PCP. Pt had asked for a follow up call. He does not have a PCP for fol low up. elephone E amanda - Rocio Goins RN - 08/19/2019 10:11 AM PDTleft voice message to return my call for follow up. Recommendations: Plan: Use albuterol inhaler as needed as before. Drink plenty of fluids and get plenty of rest. Use cgpp-oyk-xjsleus Tylenol or Advil as needed for fever, [...] d/or Cepastat throat spray as needed. Take yldx-ilm-cptecym Mucinex or equivalent product as needed for thick mucous. Use Robitussin-DM as needed for cough. Return or follow-up with your primary doctor if not better in 1 week, sooner if experiencin g difficulty swallowing liquids, progressive productive cough, associated chest pain, shortn ess of breath, progressive wheezing, fever, vomiting or progessive sinus pressure/headache. Diligent hand washing. Soap and water is best for minium of 30 seconds. If using hand sanit izer, must scrub 4 full minutes to kill Coronavirus. Rest Fluids, sports drinks, Pedialyte Monitor temperature. If fever of 100.4 alternate use of Tylenol and Ibuprofen every 4 hours . If fever does not come down try a cool shower, light clothing, cool cloth to armpits and b ack of neck, and use of fan. If fever is not resolved within 24 hours or spikes to 103.0 ple ase call your doctors office or Urgent care on weekends. Stay at home so as not to spread germs to the public. If get diarrhea it is best to sanitize toilet with bleach after use. elephone Evero kira Blunt, Krystal Olmos, Mechanical Designer - 08/17/2019 11:54 AM PSTPlease follow up on p atient. Patient was seen and I was concerned about for the COVID-19 but patient was not test ed. doc umented in this encounter Plan of Treatment Not on filedocumented as of this encounter Visit Diagnoses Not on filedocumented in this encounter"
--- OUTSIDE RECORDS SUMMARY | ~2019-12-23 | XMS | Encounter Summary ---
Demographics + + + | Address | [address] | | | [place] [address] | + + + | Home Phone | | + + + | Preferred Language | Unknown | + + + | Marital Status | Unknown | + + + | Yazidi Affiliation | Unknown | + + + | Race | Unknown | + + + | Ethnic Group | Unknown | + + + Author + + + | Author | [facility] | | | and [place] | + + + | Organization | [facility] | | | and [place] [...] Team Providers + +------+ + | Care Onsite Case Manager Name | Role | Phone | [...] + + | 02/01/ | Emergency | [facility] | Zev Haji | Contusion of right | | 2017 | | [facility] | MD [address] | leg, initial | | | | CENTER [address] | [address] [place] | encounter (Primary | | | | [place], [place] | [place] [address] | Dx); Other sprain of | | | | [address] | [phone] | right thumb, | | | | [phone] | | initial encounter | +--------+ + [...] +---------+--------+ + documented as of this encounter ED Notes Zev Haji MD - 02/01/2017 5:16 PM PDTFormatting of this note might be differen t from the original. Located Within [facility] Campbell Li Emergency Department Encounter Note [address] [place] [address] PCP:No primary care provider on file. x2019 eMERGENCY dEPARTMENT eNCOUnter CHIEF COMPLAINT Chief Complaint Patient presents with Fall HPI Campbell Li is a 21 y.o. male who presents with right mid lower leg pain and righ t thumb pain. These occurred yesterday when he slipped on some cat urine. This initially w asn't too painful but today he is having more pain so he came in for evaluation. Earlier to day said it was very painful to walk on his leg but it's not as bad now. He points to the m id fibula on the right side when I ask him where it hurts most. Complains of pain at the ba se of the right thumb as well. He says it was swollen this morning but normal now. He is a ble to move it but says it hurts a little bit at the MCP joint. PAST MEDICAL HISTORY History reviewed. No pertinent past medical history. SURGICAL HISTORY History reviewed. No pertinent surgical history. CURRENT MEDICATIONS Previous Medications DIPHENHYDRAMINE (BENADRYL) 25 MG TABLET Take 50 mg by mouth every 6 hours as needed for Itching. ALLERGIES No Known Allergies FAMILY HISTORY History reviewed. No pertinent family history. SOCIAL HISTORY Social History Social History Marital status: N/A Spouse name: N/A Number of children: N/A Years of education: N/A Social History Main Topics Smoking status: Passive Smoke Exposure - Never Smoker Smokeless tobacco: None Alcohol use No Drug use: Unknown Sexual activity: Not Asked Other Topics Concern None Social History Narrative None REVIEW OF SYSTEMS All systems negative except as indicated in HPI. PHYSICAL EXAM VITAL SIGNS: (first vital signs): Pulse: 93 Resp: 16 SpO2: 97 % BP: 138/78 Constitutional: No Acute distress Focused Exam: Right hand: No swelling. He has mild tenderness at the right MCP joint. No ligamentous la xity. Full range of motion of thumb. Neurovascular intact. No pain to palpation elsewhere in the hand or thumb. Right leg: He has no knee pain. No proximal fibula pain. He has some mild pain to palpati on about the mid fibula. Tibia is not tender. No obvious or ecchymosis. No pain to palpat ion of the ankle. No swelling of the ankle. Neurovascular intact at the foot. X-ray right thumb: No fracture X-ray right tib-fib: No fracture ED COURSE & MEDICAL DECISION MAKING Last Set of Vital Signs: Pulse: 93 Resp: 16 SpO2: 97 % BP: 138/78 Pertinent Labs & Imaging studies reviewed. (See chart for details) Patient has a contusion of the right leg and mild sprain of the right thumb. No gamekeeper 's thumb. He'll be treated with some ibuprofen and Tylenol as needed. FINAL IMPRESSION 1. Contusion of right leg, initial encounter 2. Other sprain of right thumb, initial encounter Plan: Follow-up Information [facility]. Specialty: Emergency Medicine Why: As needed Contact information: [address] [place] [address] Discharge Instructions Take ibuprofen 600 mg every 6-8 hours if needed for pain You may also take Tylenol thousand milligrams every 6 hours in addition to ibuprofen if nee ded for pain not relieved by ibuprofen Expect a couple of weeks to heal Portions of this chart may have been created with [employer] voice recognition software. Occasi onal wrong-word or sound-alike substitutions may have occurred due to the inherent greenwood itations of voice recognition software. Please read the chart carefully and recognize, using context, where these substitutions have occurred Zev Haji MD 02/01/17 1756 Eloisa Cole RN - 02/01/2017 5:10 PM PDTGLF yest, slip, pain lateral Rt leg this am, shooting pain, unab le to bear weight at the time, now limping, also c/o Rt thumb swelling & pain. Electronicall y signed by Eloisa Shannon RN at 02/01/2017 5:11 PM PDTdocumented in this encounter Plan of Treatment Not [...] | Procedure Note | + + | Faizan Bourne Results In - 02/01/2017 6:05 PM PDT [...]
--- OUTSIDE RECORDS SUMMARY | ~2019-12-23 | XMS | Encounter Summary ---
Demographics + + + | Address | [address] | | | [place] [address] | + + + | Home Phone | | + + + | Preferred Language | Unknown | + + + | Marital Status | Unknown | + + + | Jain Affiliation | Unknown | + + + | Race | Unknown | + + + | Ethnic Group | Unknown | + + + Author + + + | Author | [facility] | | | and [place] | + + + | Organization | [facility] | | | [...] Team Providers + +------+ + | Care Director Orange Name | Role | Phone | + [...] | pain with | [address] [place] | [place], [place] | | | | | right-sided | [place], [place] | [address] Phone: | | | | | sciatica | [address] | [phone] | | | | | | Phone: | Fax: | | | | | | [phone] | [phone] | | | | | | Fax: | | | | | | | [phone] | | +--------+ + + + + [...] | | [address] | [address] | (Primary Dx); Lumbar | | | | [place], [place] | [address] [place] [address] | radiculopathy; | | | | [address] | [address] | Lumbar disc | | | | [phone] | | herniation | +--------+---------+ + + [...] from the original. Joaquin Workman PA-C [address] [place] [address] PHONE: FAX: NEUROSURGERY HISTORY AND PHYSICAL EXAMINATION [...] has no apparent deficits with short or intermediate project manager memory. CRANIAL NERVES: II: Acuity is intact. [...] to see Dr. Vigil or Dr. Dr ikng in the event that his symptoms progress [...]
--- OUTSIDE RECORDS SUMMARY | ~2019-12-23 | XMS | Encounter Summary ---
Demographics + + + | Address | [address] | | | [place] [address] | + + + | Home Phone | | + + + | Preferred Language | Unknown | + + + | Marital Status | Unknown | + + + | Church Affiliation | Unknown | + + + | Race | Unknown | + + + | Ethnic Group | Unknown | + + + Author + + + | Author | [facility] | | | and [place] | + + + | Organization | [facility] | | | and [...] Team Providers + +------+ + | Care Permastone Installer Name | Role | Phone | [...] | | | | CENTER [address] | [place] [place] | | | | | [place], [place] | [address] | | | | | [address] | | | | | | [phone] | | | +--------+ + + + [...] through Care Everywhere.Abscess, Incisi on And Drainage (Indonesian)documented in this encounter Medications at Time of [...] + + documented as of this encounter Procedure Notes Paul Art MD - 08/15/2018 3:26 PM PSTAssociated Order(s): INCISION AND DRAINAGEIncisio n/Drainage Date/Time: 08/15/2018 15:26 Performed by: PAUL ART Authorized by: PAUL ART Consent: Consent obtained: Verbal Consent given by: Patient Risks discussed: Bleeding, incomplete drainage, pain, infection and damage to other orga ns Alternatives discussed: No treatment Location: Type: Abscess Location: Trunk Trunk location: Abdomen Anesthesia: Anesthesia method: Local infiltration Local anesthetic: Lidocaine 1% WITH epi Procedure type: Complexity: Simple Procedure details: Needle aspiration: no Incision types: Single straight Incision depth: Subcutaneous Scalpel blade: 11 Wound management: Probed and deloculated and irrigated with saline Drainage: Serosanguinous Drainage amount: Scant Wound treatment: Wound left open Packing materials: None Post-procedure details: Patient tolerance of procedure: Tolerated well, no immediate complications [facility] Paul Art MD - 08/12/2018 4:30 PM PSTFormatting of this note might be different from t he original. [facility] Campbell Li Emergency Department Encounter Note [address] [place] [address] PCP:No Physician on file [phone] CHIEF COMPLAINT: Chief Complaint Patient presents with Abscess ED Room: ED11/ED11 HPI Campbell Li is a 23 y.o. male who presents to the Emergency Department with concern for abscess in his right lower abdomen. Patient noticed the swelling 3 days ago. He denies an y pain, fevers or chills, nausea and vomiting. Had an ingrown hair there several days ago. PAST MEDICAL & SURGICAL HISTORY History reviewed. No pertinent past medical history. History reviewed. No pertinent surgical history. CURRENT MEDICATIONS Discharge Medication List as of 08/12/2018 16:54 CONTINUE these medications which have NOT CHANGED Details cetirizine (ZYRTEC) 10 mg tablet Take 10 mg by mouth Daily.Historical Med cyclobenzaprine (FLEXERIL) 10 mg tablet Take 10 mg by mouth 3 times daily as needed for Mus ezio spasms.Historical Med ALLERGIES No Known Allergies FAMILY AND SOCIAL HISTORY History reviewed. No pertinent family history. Social History Social History Marital status: Significant Other Spouse name: N/A Number of children: N/A Years of education: N/A Social History Main Topics Smoking status: Current Every Day Smoker Types: E-Cigarettes Smokeless tobacco: Never Used Alcohol use No Drug use: No Sexual activity: Not Asked Other Topics Concern None Social History Narrative None REVIEW OF SYSTEMS As in history of present illness. A 10 system review was otherwise negative. PHYSICAL EXAM VITAL SIGNS: (first vital signs):Temp: 37.4 C (99.3 F) Pulse: 87 Resp: 16 SpO2: 97 % BP : 144/75 Body mass index is 42.88 kg/m. Constitutional: male patient, NAD HEENT: Atraumatic, PERRL, Oropharynx benign. Neck: Supple with full range of motion. Respiratory: Good air movement bilaterally. Cardiovascular: Normal S1 S2 Abdomen: 1 cm by 1 cm area of ecchymosis, mildly tender to palpation in the RLQ, no erythe ma Extremities: Nontender. Skin: Warm, Dry, No rashes Neurologic: Alert & oriented. Psychiatric: Normal mood, affect and judgement. EKG 12-lead EKG shows LABS Results for orders placed or performed during the hospital encounter of 10/12/17 Extra Gold Top Tube Result Value Ref Range Extra Gold Top Tube Done Extra Blue Top Tube Result Value Ref Range Extra Blue Top Tube Done Extra Green Top Tube Result Value Ref Range Extra Green Top Tube Done Extra Lavender Top Tube Result Value Ref Range Extra Lavender Top Tube Done Extra Lavender Top Tube Result Value Ref Range Extra Lavender Top Tube Done Extra Green Top Tube Result Value Ref Range Extra Green Top Tube Done CBC with Differential Result Value Ref Range WBC 10.9 4.0 - 11.0 K/uL RBC 5.48 4.30 - 5.70 M/uL Hemoglobin 15.6 13.5 - 18.0 g/dL Hematocrit 46.6 40.0 - 51.0 % MCV 85.1 [...] Comprehensive Metabolic Panel Result Value Ref Range Na 140 136 - 149 mmol/L K 4.2 3.5 - 5.1 mmol/L Cl 103 98 - 109 mmol/L CO2 27 24 - 31 mmol/L Anion Gap 10 3 - 16 mmol/L Glucose 106 70 - 109 mg/dL BUN 12 7 - 18 mg/dL Creatinine 0.79 0.60 - 1.30 mg/dL eGFR if not >60 >=60 mL/min/1.73m2 Ca 10.0 8.3 - 10.5 mg/dL Albumin 4.4 3.2 - 5.0 g/dL Bilirubin Total 0.8 0.1 - 1.5 mg/dL Total Protein 7.4 6.0 - 7.8 g/dL AST 29 10 - 42 U/L ALT 52 (H) 6 - 45 U/L Alkaline Phosphatase 53 40 - 110 U/L Globulin 3.0 2.1 - 3.8 g/dL Albumin/Globulin Ratio 1.5 0.8 - 2.0 BUN/Creatinine Ratio 15.2 Protime INR Result Value Ref Range Protime 13.3 11.3 - 13.9 seconds INR 1.02 0.90 - 1.10 IMAGING STUDIES (X-Rays interpreted by ED Physician) ED COURSE & MEDICAL DECISION MAKING Pertinent Labs & Imaging studies were reviewed along with EMS notes and alf record s if applicable. (See chart for details) Medications and Allergy list reviewed. Nurses note and old records were reviewed The patient was seen and examined, Bedside ultrasound of his right lower quadrant did reveal a small fluid collection. I&D wa s performed. He was given a prescription for Bactrim to be taken if he started having eryth kwame around the abscess. He was asked return for any worsening symptoms. Last Set of Vital Signs: Temp: 37.4 C (99.3 F) Pulse: 71 Resp: 16 SpO2: 97 % BP: 143/85 FINAL IMPRESSION ICD-10-CM ICD-9-CM 1. AbscessAcute L02.91 682.9 Follow-up Information [facility]. Specialty: Emergency Medicine Why: If symptoms worsen Contact information: [address] [place] [address] Discharge Medication List as of 08/12/2018 16:54 START taking these medications Details sulfamethoxazole-trimethoprim (BACTRIM DS) 800-160 mg per tablet Take 1 tablet by mouth 2 t imes daily for 7 days.Disp-14 tablet, R-0, Print Paul Art MD 08/15/18 1526 Valarie Pickett RN - 0 08/12/2018 2:59 PM PSTConcern for abscess to right lower abd that pt first noticed 3 days ag o. Denies fevers. doc umented in this encounter Plan of [...]
--- OUTSIDE RECORDS SUMMARY | ~2019-12-23 | XMS | Encounter Summary ---
Demographics + + + | Address | [address] | | | [place] [address] | + + + | Home Phone | | + + + | Preferred Language | Unknown | + + + | Marital Status | Unknown | + + + | Spiritism Affiliation | Unknown | + + + | Race | Unknown | + + + | Ethnic Group | Unknown | + + + Author + + + | Author | [facility] | | | and [place] | + + + | Organization | [facility] | | | and [place] [...] Team Providers + +------+ + | Care User Experience Developer Name | Role | Phone | + [...] + + | 10/09/ | Emergency | AVSDTess OLVERA MARIA D | Juan Francisco Porras | Lumbar strain, | | 2018 | | [facility] | Kwadwo Jones MD | initial encounter | | | | CENTER [address] | [address] | (Primary Dx) | | | | [place], [place] | [place], [place] | | | | | [address] | [address] | | | | | [phone] | | | +--------+ + + + [...] for further reassessment and possible referral [facility] therapy. AttachmentsThe following attachments cannot be sent through Care Everywhere.Lumbosacral Str yong, Angela (Khmer)documented in this encounter Medications at Time of [...] documented as of this encounter ED Notes Juan Francisco Porras MD - 10/09/2017 3:03 PM PDTFormatting of this note might be d ifferent from the original. [facility] Campbell Li Emergency Department Encounter Note [address] [place] [address] PCP:No Physician on file [phone] eMERGENCY dEPARTMENT eNCOUnter CHIEF COMPLAINT Chief Complaint Patient presents with Back Pain TRIAGE ED Triage Notes, ED Triage Notes Ayala Collazo RN 10/09/2017 13:13 Pt complains that he was lifting boxes on Monday. He thought he was lifting a box of clot hes but it ended up being a box full of tools. Since than he has been barely able to walk or roll over in bed. Unable to sit or stand for long. (Triaged at a 3 due to BP and heart rate not stability.) Original note by Ayala Collazo RN at 10/09/2017 13:09 Ayala Collazo RN 10/09/2017 13:09 Pt complains that he was lifting boxes on Monday. He thought he was lifting a box of clot hes but it ended up being a box full of tools. Since than he has been barely able to walk or roll over in bed. Unable to sit or stand for long Addendum to note by Ayala Collazo RN at 10/09/2017 13:13 HPI Campbell Li is a 22 y.o. male who presents patient with bilateral lower back pain he's having difficulty walking. He is having difficulty changing positions. He has ongoin g pain at this time. He tried some marijuana to alleviate his pain it is not helping. Patient has severe pain in lower back. He states he lifted a box of tools and he felt a po p in his back when this occurred. PAST MEDICAL HISTORY History reviewed. No pertinent [...] HISTORY Social History Social History Marital status: Significant Other Spouse name: N/A Number of children: N/A Years of education: N/A Social History Main Topics Smoking status: Passive Smoke Exposure - Never Smoker Smokeless tobacco: Never Used Alcohol use No Drug use: Unknown Sexual activity: Not Asked Other Topics Concern None Social History Narrative None REVIEW OF SYSTEMS Please see HPI, All systems negative except as marked. Twelve point review of system comp leted my me. PHYSICAL EXAM VITAL SIGNS: Temp: 36.9 C (98.5 F) Pulse: 111 Resp: 16 SpO2: 97 % BP: (!) 157/99 Constitutional: Well developed, Well nourished, Non-toxic appearance. HENT: Normocephalic, Atraumatic, Bilateral external ears normal, Oropharynx moist, No oral exudates, Nose normal. Neck- Normal range of motion, No tenderness, Supple, No stridor. Eyes: PERRL, EOMI, Conjunctiva normal, No discharge. Respiratory: Normal breath sounds, No respiratory distress, No wheezing, No chest tenderne ss. Cardiovascular: Normal heart rate, Normal rhythm, No murmurs, No rubs, No gallops. GI: Bowel sounds normal, Soft, No tenderness, No masses, No pulsatile masses. : defered Musculoskeletal: Intact distal pulses, No edema, No tenderness, No cyanosis, No clubbing. Good range of motion in all major joints. No tenderness to palpation or major deformities no octavio. Back:- Significant lower lumbar pain. Decreased pain on range of motion. Pain paraspinal muscles bilaterally. Patient is splinting due to pain. He is having some trouble standing and walking due to pain. Neurologic: Alert & oriented x 3, Normal motor function, Normal sensory function, No focal deficits noted, no facial assymetry noted. Equal television news anchor in all extremities ED COURSE & MEDICAL DECISION MAKING Pertinent Labs & Imaging studies reviewed. (See chart for details) Nursing notes reviewed. Patient does not appear to have acute signs of distress ability at this time. Patient is t o do some icing to his back and range of motion exercises. We are giving him some pain medi cation for his use at home. He is to follow-up with primary care physician and referral for physical therapy and/or other treatment for ongoing lumbar pain. 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 This point patient is otherwise stable. Patient's to be followed by primary care physician . Patient does not appear to be in acute distress. New Prescriptions CYCLOBENZAPRINE (FLEXERIL) 10 MG TABLET Take 1 tablet by mouth 3 times daily as needed for Muscle spasms. HYDROCODONE-ACETAMINOPHEN (NORCO) 5-325 MG PER TABLET Take 1-2 tablets by mouth every 6 hours as needed for Pain. IBUPROFEN (ADVIL,MOTRIN) 800 MG TABLET Take 1 tablet by mouth every 6 hours as needed f or Pain for up to 10 days. Discharge Instructions Do stretching and icing to your lower back. Continue walking. Please follow-up with your primary care physician. Please follow-up with the primary care physician for further reasse ssment and possible referral to physical therapy. Discharge References/Attachments Lumbosacral Strain, Understanding (Khmer) FINAL IMPRESSION 1. Lumbar strain, initial encounter Acute Portions of this chart may have been created with [employer] voice recognition software. Occasi onal wrong-word or sound-alike substitutions may have occurred due to the inherent greenwood itations of voice recognition software. Please read the chart carefully and recognize, using context, where these substitutions have occurred Juan Francisco Porras MD 10/09/17 1992 Macario Irizarry, Student BIOLOGICAL LAB TECHNICIAN - 10/09/2017 1:08 PM PDTPt complains that he was lifting boxes on . He thought he was lifting a box of clothes but it ended up being a box full of tools. Sin ce than he has been barely able to walk or roll over in bed. Unable to sit or stand for long . (Triaged at a 3 due to BP and heart rate not stability.) documented in this encounter Plan of Treatment [...]
--- OUTSIDE RECORDS SUMMARY | 2019-12-23 17:16 | XMS ---
PreManage Notification: PASHA LOPEZ Security Furrier Designer Events No recent Security Events currently on file CRITERIA MET - [facility] - Has Care Guidelines CARE PROVIDERS PERI CARDOZO Physician Ecdis N Navigation Operator 11/06/2019-Current PHONE: [phone] [facility] has no Care Guidelines for this patient. Care History Medical/Surgical 11/07/2019 [facility] Made contact with patient regarding recent Asthma symptoms. Based on correspondence I have requested the addition of ICS to his inhaler regimen and inhaler training referral sent to cardiopulmonary services. Juan Francisco Mtz RRT 08/13/2019 [facility] - PATIENT DOES NOT HAVE A PCP- [facility] CALLED AND LEFT PATIENT A VOICEMAIL. - SENT PATIENT NO PCP LETTER. E.D. VISIT COUNT (12 MO.) 4 [facility]. TOTAL 4 NOTE: Visits indicate total known visits. ED/UCC VISIT TRACKING (12 MO.) 12/23/2019 17:[address] [facility] TYPE: Emergency COMPLAINT: - CHEST PAIN/TIGHTNESS 11/01/2019 17:23 [facility] TYPE: Emergency COMPLAINT: - CHEST PAIN, SOB DIAGNOSES: - Shortness of breath - Personal history of nicotine dependence - Unspecified asthma, uncomplicated - Other shelter (current) drug therapy 08/16/2019 19:30 [facility] Najma [facility]VAL[facility] TYPE: Urgent Care DIAGNOSES: - Cough - [...] with (acute) exacerbation - Cough - Other intermediate designer (current) drug therapy - Acute bronchitis, unspecified INPATIENT VISIT TRACKING (12 MO.) No inpatient visits to display in this time frame [email or web address]
[2019-12-23] MEDS ORDERED: VENTOLIN HFA18 GM INH (19:13)
--- NOTE | 2019-12-24 09:08 | EKG ---
[facility] [address] [place], [place] [address] Signed Normal sinus rhythm with sinus arrhythmia Rightward axis Borderline ECG No previous ECGs available Confirmed by BEBO GONZALEZ MD ([id number]) on 12/24/2019 9:08:37 AM Electronically Signed By: BEBO GONZALEZ MD 12/24/19 0908 PATIENT NAME: PASHA LOPEZ Electrocardiogram DATE OF : [birth year] PHYSICIAN: BEBO GONZALEZ MD REPORT #: [id number] REPORT IS CONFIDENTIAL AND NOT TO BE RELEASED WITHOUT AUTHORIZATION
== END 2019-12-23 19:17 | disposition home or self-care (01) ==
LOC: ED 17:12
DX: R07.9 Chest pain, unspecified (principal)
CPT/HCPCS: 71045; 80053; 83735; 84484; 85025; 93005; 93010; 99285-25

== ENCOUNTER 2020-10-26 11:13 | Emergency (ER) | payer OTHER ==
[~2020-10-26] VITALS: Ht 188 cm; Wt 154.2 kg
--- OUTSIDE RECORDS SUMMARY | 2020-10-26 11:18 | XMS ---
PreManage Notification: PASHA LOPEZ Security Director Of Program Management Events No recent Security Events currently on file CRITERIA MET - [facility] - Has Care Guidelines CARE PROVIDERS PERI CARDOZO Physician Highway Design Engineer 11/06/2019-Current PHONE: [phone] [place] has no Care Guidelines for this patient. Care History Medical/Surgical 11/07/2019 [facility] Made contact with patient regarding recent Asthma symptoms. Based on correspondence I have requested the addition of ICS to his inhaler regimen and inhaler training referral sent to cardiopulmonary services. Juan Francisco Mtz RRT 08/13/2019 [facility] - PATIENT DOES NOT HAVE A PCP- [facility] CALLED AND LEFT PATIENT A VOICEMAIL. - SENT PATIENT NO PCP LETTER. E.D. VISIT COUNT (12 MO.) 3 [facility]. TOTAL 3 NOTE: Visits indicate total known visits. ED/UCC VISIT TRACKING (12 MO.) 10/26/2020 11:14 [facility] [place] TYPE: Emergency COMPLAINT: - HEADACHE, N/V 12/23/2019 17:13 [facility] [place] TYPE: Emergency COMPLAINT: - CHEST PAIN/TIGHTNESS DIAGNOSES: - Chest pain, unspecified 11/01/2019 17:23 [facility] [place] TYPE: Emergency COMPLAINT: - CHEST PAIN, SOB DIAGNOSES: - Shortness of breath - Personal history of nicotine dependence - Unspecified asthma, uncomplicated - Other senior care (current) drug therapy INPATIENT VISIT TRACKING (12 MO.) No inpatient visits to display in this time frame [email or web address]
[2020-10-26] MEDS ORDERED: ONDANSETRON ODT4 MG PO (12:12)
== END 2020-10-26 12:20 | disposition home or self-care (01) ==
LOC: ED 11:13
DX: S09.90XA Unspecified injury of head, initial encounter (principal); W22.8XXA Striking against or struck by other objects, initial encounter; J45.909 Unspecified asthma, uncomplicated; G43.909 Migraine, unspecified, not intractable, without status migrainosus
CPT/HCPCS: 99283

== ENCOUNTER 2020-11-06 16:42 | Emergency (ER) | payer OTHER ==
[~2020-11-06] VITALS: Ht 188 cm; Wt 145.2 kg
[~2020-11-06 16:42] MED LIST changes: +ONDANSETRON ODT4 MG PO
--- OUTSIDE RECORDS SUMMARY | 2020-11-06 16:44 | XMS ---
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 Care History Medical/Surgical 11/07/2019 [facility] Made contact with patient regarding recent Asthma symptoms. Based on correspondence I have requested the addition of ICS to his inhaler regimen and inhaler training referral sent to cardiopulmonary services. Juan Francisco Mtz RRT, E.D. VISIT COUNT (12 MO.) 3 [facility] TOTAL 3 NOTE: Visits indicate total known visits. ED/UCC VISIT TRACKING (12 MO.) 11/06/2020 16:42 [facility] TYPE: Emergency COMPLAINT: - ABDOMINAL PAIN 10/26/2020 11:14 [facility] TYPE: Emergency COMPLAINT: - HEADACHE, N/V DIAGNOSES: - Migraine, unspecified, not intractable, without status migrainosus - Unspecified injury of head, initial encounter - Unspecified asthma, uncomplicated - Headache, unspecified - Striking against or struck by other objects, initial encounter 12/23/2019 17:13 [facility] TYPE: Emergency COMPLAINT: - CHEST PAIN/TIGHTNESS DIAGNOSES: - Chest pain, unspecified INPATIENT VISIT TRACKING (12 MO.) No inpatient visits to display in this time frame [email or web address]
[2020-11-06] MEDS ORDERED: ZYRTEC10 M3 PO (16:59)
[2020-11-06] MEDS ORDERED: ZOFRAN4 MG PO (20:30)
[2020-11-06] MEDS ORDERED: PROTONIX40 MG PO (20:30)
== END 2020-11-06 20:54 | disposition home or self-care (01) ==
LOC: ED 16:42
DX: R10.10 Upper abdominal pain, unspecified (principal); R11.2 Nausea with vomiting, unspecified; J45.909 Unspecified asthma, uncomplicated; G43.909 Migraine, unspecified, not intractable, without status migrainosus; Z87.891 Personal history of nicotine dependence; Z79.899 Other long term (current) drug therapy
CPT/HCPCS: 76705; 80053; 81001; 83690; 85025; 99284-25; J2405; J7030

== ENCOUNTER 2021-04-02 11:31 | Emergency (ER) | payer OTHER ==
[~2021-04-02] VITALS: Ht 188 cm; Wt 143.6 kg
[~2021-04-02 11:31] MED LIST changes: +PROTONIX40 MG PO; +ZOFRAN4 MG PO; +ZYRTEC10 M3 PO
--- OUTSIDE RECORDS SUMMARY | 2021-04-02 11:38 | XMS ---
PreManage Notification: PASHA LOPEZ Security Supervisor Finishing Events No recent Security Events currently on file CRITERIA MET - [facility] - Has Care Guidelines CARE PROVIDERS PERI CARDOZO Physician Communications Marketing Intern 11/06/2019-Current PHONE: [phone] [place] has no Care Guidelines for this patient. Care History Medical/Surgical 11/07/2019 [facility] Made contact with patient regarding recent Asthma symptoms. Based on correspondence I have requested the addition of ICS to his inhaler regimen and inhaler training referral sent to cardiopulmonary services. Juan Francisco Mtz RRT, E.D. VISIT COUNT (12 MO.) 3 [facility]. TOTAL 3 NOTE: Visits indicate total known visits. ED/UCC VISIT TRACKING (12 MO.) 04/02/2021 11:31 [facility] TYPE: Emergency COMPLAINT: - DOG BITE 11/06/2020 16:42 [facility] TYPE: Emergency COMPLAINT: - ABDOMINAL PAIN DIAGNOSES: - Migraine, unspecified, not intractable, without status migrainosus - Nausea with vomiting, unspecified - Personal history of nicotine dependence - Other snf (current) drug therapy - Unspecified asthma, uncomplicated - Upper abdominal pain, unspecified 10/26/2020 11:14 [facility] TYPE: Emergency COMPLAINT: - HEADACHE, N/V DIAGNOSES: - Migraine, unspecified, not intractable, without status migrainosus - Unspecified injury of head, initial encounter - Unspecified asthma, uncomplicated - Headache, unspecified - Striking against or struck by other objects, initial encounter INPATIENT VISIT TRACKING (12 MO.) No inpatient visits to display in this time frame [email or web address]
[2021-04-02] MEDS ORDERED: AUGMENTIN 875-1 EACH PO (11:50)
== END 2021-04-02 12:12 | disposition home or self-care (01) ==
LOC: ED 11:31
DX: S61.551A Open bite of right wrist, initial encounter (principal); W54.0XXA Bitten by dog, initial encounter; J45.909 Unspecified asthma, uncomplicated; G43.909 Migraine, unspecified, not intractable, without status migrainosus; Z87.891 Personal history of nicotine dependence; Z79.899 Other long term (current) drug therapy
CPT/HCPCS: 99283